=== PATIENT | male | born 1955 | race Caucasian/White ===

== ENCOUNTER 2018-02-11 22:28 | Emergency (ER) | payer MEDICARE ==
[2018-02-11] MEDS ORDERED: IPRATROPIUM/ALBUTEROL 0.5-2.5 MG/3 ML AMPUL NEB ONE ×2 (22:36→22:37)
[2018-02-11] MEDS ORDERED: METHYLPREDNISOLONE INJ 125 MG/2 ML SDV IV ONE (22:36)
--- NOTE | 2018-02-11 22:45 | ER Document Report ---
ED Respiratory Problem - General Mode of Arrival: Medic Information source: Patient <NICOLEMARISELA - Last Filed: 02/12/18 01:40> <LISBETHTRISTAN Herbert - Last Filed: 02/12/18 02:30> - General Chief Complaint: Shortness Of Breath Stated Complaint: HIP PAIN AND TORUBLE BREATHING Time Seen by Provider: 02/11/18 22:31 Notes: Patient is a 63 year old female with hypertension, osteomyelitis, A. fib, CAD with a history of bilateral DVT presents to the emergency department complaining of difficulty breathing and bilateral leg pain onset today. Patient states he recently arrived in [place], [place] from [place], [place] 2 days ago further stating the trip was a 7.5 [address] ride. Patient states he has been having bilateral leg pain the last few days but states his difficulty breathing was onset today. Patient states he missed his Xarelto does the last couple of days. Of significance, patient was diagnosed with bilateral lower extremities DVTs on 07/10/2009. He was also admitted to a hospital on 12/12/2017-12/16/2017 for hypertension, osteomyelitis, A. fib, pulmonary emphysema, CAD, hypotension and tobacco abuse. (MARISELA RIVERA) - Related Data Allergies/Adverse Reactions: No Known Allergies Allergy (Unverified 02/11/18 23:49) Past Medical History - General Information source: Patient - Social History Smoking Status: Current Every Day Smoker Cigarette use (# per day): Yes Family History: Reviewed & Not Pertinent - Past Medical History Cardiac Medical History: Reports: Hx Atrial Fibrillation, Hx Coronary Artery Disease, Hx DVT - BLE 2009, Hx Hypertension <MARISELA RIVERA - Last Filed: 02/12/18 01:40> Review of Systems - Review of Systems Constitutional: No symptoms reported EENT: No symptoms reported Cardiovascular: No symptoms reported Respiratory: See HPI Gastrointestinal: No symptoms reported Genitourinary: No symptoms reported Male Genitourinary: No symptoms reported Musculoskeletal: See HPI Skin: No symptoms reported Hematologic/Lymphatic: No symptoms reported Neurological/Psychological: No symptoms reported -: Yes All other systems reviewed and negative <MARISELA RIVERA - Last Filed: 02/12/18 01:40> Physical Exam - General General appearance: Alert In distress: Mild - HEENT Head: Normocephalic, Atraumatic Eyes: Normal Conjunctiva: Normal Extraocular movements intact: Yes Pupils: PERRL Neck: Normal - Respiratory Respiratory status: Respiratory distress, Tachypnea, Other - Dyspneic, frequent retractions Chest status: Nontender Breath sounds: Normal, Rales - Left greater than right, Wheezing - left greater than right Chest palpation: Normal - Cardiovascular Rhythm: Regular, Tachycardia Heart sounds: Normal auscultation Murmur: No Friction rub: No Gallop: None auscultated - Back Back: Normal - Extremities General upper extremity: Normal ROM General lower extremity: Normal ROM, Other - Distended varicosities BLE, right greater than left. BLE cool to touch, bilateral foot cold to touch and cyanotic. 5 second capillary refill. Pulses cannot be palpated in the BLE. Partial amputation of the fifth metatarsal, stump has yet to heal. Foot: Other - 5th metarsal partial amputation - Neurological Neuro grossly intact: Yes Cognition: Normal Orientation: AAOx4 Molly Coma Scale Eye Opening: Spontaneous [place] Coma Scale Verbal: Oriented Molly Coma Scale Motor: Obeys Commands Molly Coma Scale Total: 15 Speech: Normal - Psychological Associated symptoms: Normal affect, Normal mood - Skin Skin Temperature: Warm Skin Moisture: Dry <MARISELA RIVERA - Last Filed: 02/12/18 01:40> - Vital signs Vitals: Resp 20 02/11/18 22:30 Course - Laboratory Result Diagrams: 02/11/18 22:36 02/11/18 22:36 <MARISELA RIVERA - Last Filed: 02/12/18 01:40> - Laboratory Result Diagrams: 02/11/18 22:36 02/11/18 22:36 <TRISTAN BOB - Last Filed: 02/12/18 02:30> - Re-evaluation Re-evalutation: 02/12/18 00:47 states the patient had a stent placed in each leg. further states the right 5th metatarsal partial amputation was due to the stent collapsing. (MARISELA RIVERA) 02/12/18 02:27 Initially calls were made to [facility] to discuss the Cta with the interventional radiologist. This was based on my looking at the scan as there was a delay in getting a radiologist to read it. An attempt was made to get the patient transferred to [facility], however the patient was put on a waiting list because there were no beds. This did require multiple phone calls involving the radiology PA director of slot operations, and the hospitalist director of slot operations. Shortly after I found there were no beds available for IR, and the official reading of the CTA suggested that interventional radiology was not urgently needed, the patient began having the increased discoloration to his feet, increased pain, and the feet became quite cold to touch. At this time the surgeon [facility] was consulted, and he recommended emergent transfer to a vascular surgeon. A call was made to [facility] for vascular surgery consultation. Vascular surgeon return the call back at [phone], and immediately accepted the patient. At this time the helicopter is about to land, to transport the patient. The patient continues to have a pulse of about 125, blood pressure 165 systolic , and pulse ox of 95% on nonrebreather oxygen mask. (TRISTAN BOB) - Vital Signs Vital signs: Temp Pulse Resp BP Pulse Ox 97.8 F 128 H 23 H 165/131 H 96 02/11/18 23:27 02/11/18 23:27 02/12/18 02:01 02/12/18 02:01 02/12/18 02:01 - Laboratory Laboratory results interpreted by mo: 02/11/18 02/11/18 02/11/18 22:36 22:36 22:36 WBC 13.7 H RBC 5.89 H Hgb 17.3 H Hct 53.0 H RDW 17.9 H Lymphocytes % 9.1 L Absolute Neutrophils 10.5 H PT Carbonic Acid ABG pH ABG pCO2 ABG pO2 ABG Total CO2 ABG O2 Saturation Potassium 5.3 H Chloride 108 H Creatinine 1.53 H Est GFR ( Amer) 56 L Est GFR (Non-Af Amer) 46 L Glucose 152 H Direct Bilirubin 0.6 H Creatine Kinase 54 L NT-Pro-B Natriuret Pep 2730 H 02/11/18 02/11/18 22:36 23:00 WBC RBC Hgb Hct RDW Lymphocytes % Absolute Neutrophils PT 15.6 H Carbonic Acid 1.45 H ABG pH 7.26 L ABG pCO2 48.2 H ABG pO2 75.0 L ABG Total CO2 22.5 L ABG O2 Saturation 92.9 L Potassium Chloride Creatinine Est GFR ( Amer) Est GFR (Non-Af Amer) Glucose Direct Bilirubin Creatine Kinase NT-Pro-B Natriuret Pep Critical Care Note - Critical Care Note Total time excluding time spent on procedures (mins): 55 <TRISTAN BOB - Last Filed: 02/12/18 02:30> Discharge <MARISELA RIVERA - Last Filed: 02/12/18 01:40> <TRISTAN BOB - Last Filed: 02/12/18 02:30> - Discharge Clinical Impression: Cor pulmonale, acute Pulmonary embolus Qualifiers: Pulmonary embolism type: saddle Chronicity: acute Acute cor pulmonale presence : with acute cor pulmonale Qualified Code(s): I26.02 - Saddle embolus of pulmonary artery with acute cor pulmonale Condition: Serious Disposition: [facility] Referrals: LOCALMD,NO [NO LOCAL MD] - Follow up as needed Scribe Attestation: 02/12/18 02:27 I personally performed the services described in the documentation, reviewed and edited the documentation which was dictated to the scribe in my presence, and it accurately records my words and actions. (TRISTAN BOB) Scribe Documentation - Scribe Written by Scribe:: Keith Sy, 02/11/2018 22:54 acting as scribe for :: Lisbeth <MARISELA RIVERA - Last Filed: 02/12/18 01:40>
--- NOTE | 2018-02-11 22:47 | RADIOLOGY REPORT (SQ) ---
EXAM DESCRIPTION: XR CHEST 1 VIEW COMPLETED DATE/TME: 02/11/2018 22:30 CLINICAL HISTORY: 63 years Male, difficulty breathing COMPARISON: None. NUMBER OF VIEWS/TECHNIQUE: 1/AP FINDINGS: Adequate lung volume, moderate interstitial markings, normal cardiac silhouette, small obscuration-fusion of the right costophrenic angle, left cardiac stimulator with leads, and left costophrenic angle minimally clipped off to admission. Normal cardiac silhouette, and intact bony thorax. IMPRESSION: Moderate interstitial markings. Differential diagnosis includes pulmonary edema, atypical pneumonitis, and chronic interstitial lung disease.
[2018-02-11] MEDS ORDERED: HEPARIN SOD (PORCINE) 1,000 UNIT/ML 10 ML VIAL IV ONE (22:53)
[2018-02-11] MEDS ORDERED: HEPARIN SODIUM,PORCINE/D5W 25,000 UNIT/250 ML RTUINJ IV PRN (22:53)
[2018-02-11 22:57] LABS: ABSOLUTE BASOPHILS # (AUTO) 0.1 10^3/uL (0.0-0.2); ABSOLUTE EOSINOPHILS # (AUTO) 0.5 10^3/uL (0.0-0.6); ABSOLUTE LYMPHOCYTES (AUTO) 1.2 10^3/uL (0.5-4.7); ABSOLUTE MONOCYTES (AUTO) 1.3 10^3/uL (0.1-1.4); ABSOLUTE NEUT (AUTO) 10.5 10^3/uL (1.7-8.2); BASOPHILS % (AUTO) 0.8 % (0-2); EOSINOPHILS % (AUTO) 3.9 % (0-6); HEMOGLOBIN 17.3 g/dL (13.5-17.0); LYMPHOCYTES % (AUTO) 9.1 % (13-45); MEAN CORPUSCULAR HEMOGLOBIN 29.4 pg (27.0-33.4); MEAN CORPUSCULAR HGB CONC 32.6 g/dL (32.0-36.0); MEAN CORPUSCULAR VOLUME 90 fl (80-97); MONOCYTES % (AUTO) 9.8 % (3-13); PLATELET COUNT 294 10^3/uL (150-450); RED BLOOD COUNT 5.89 10^6/uL (4.35-5.55); RED CELL DISTRIBUTION WIDTH 17.9 % (11.5-14.0); SEGMENTED NEUTROPHILS % (AUTO) 76.4 % (42-78); TOTAL CELLS COUNTED % (AUTO) 100 %; WHITE BLOOD COUNT 13.7 10^3/uL (4.0-10.5)
[2018-02-11 23:03] LABS: INTERNATIONAL RATION (INR) 1.18; PROTHROMBIN TIME 15.6 SEC (11.4-15.4)
[2018-02-11 23:04] LABS: PARTIAL THROMBOPLASTIN TIME 32.1 SEC (23.5-35.8)
[2018-02-11] MEDS ORDERED: HEPARIN SODIUM,PORCINE/D5W 25,000 UNIT/250 ML RTUINJ IV ONE (23:06)
[2018-02-11 23:09] LABS: ARTERIAL BLOOD BASE EXCESS -6.3 mmol/L; ARTERIAL BLOOD H2CO3 1.45 mmol/L (1.05-1.35); ARTERIAL BLOOD O2 SATURATION 92.9 % (94-98); ARTERIAL BLOOD PCO2 48.2 mmHg (35-45); ARTERIAL BLOOD PH 7.26 (7.35-7.45); ARTERIAL BLOOD TOTAL CO2 22.5 mmol/L (23-27)
[2018-02-11 23:10] LABS: ARTERIAL BLOOD FIO2 100%
[2018-02-11 23:12] LABS: ALANINE AMINOTRANSFERASE 21 U/L (21-72); ALBUMIN 4.2 g/dL (3.5-5.0); ALKALINE PHOSPHATASE 71 U/L (38-126); ANION GAP 12 (5-19); ASPARTATE AMINO TRANSFERASE 35 U/L (17-59); BILIRUBIN,DIRECT 0.6 mg/dL (0.0-0.4); BILIRUBIN,TOTAL 1.3 mg/dL (0.2-1.3); BLOOD UREA NITROGEN 17 mg/dL (7-20); CALCIUM 9.2 mg/dL (8.4-10.2); CARBON DIOXIDE 24 mmol/L (22-30); CHLORIDE 108 mmol/L (98-107); CREATINE KINASE 54 U/L (55-170); GLUCOSE 152 mg/dL (75-110); POTASSIUM 5.3 mmol/L (3.6-5.0); SODIUM 144.4 mmol/L (137-145); TOTAL PROTEIN 7.3 g/dL (6.3-8.2)
--- NOTE | 2018-02-11 23:14 | RADIOLOGY REPORT (SQ) ---
PROCEDURE: CLINICAL HISTORY: 63 years Male chest pain , sob hx pe COMPARISON: None. TECHNIQUE: Contiguous axial images were obtained through the chest during the infusion of IV contrast. Reformatted images obtained. MIP reformatted images obtained. This exam was performed according to our department optimization program which includes automated exposure control, adjustment of the mA and/or kv according to patient size and/or use of iterative reconstruction technique. FINDINGS: There is a large amount of intraluminal thrombus in the left main pulmonary artery. However this apparently affects only some of the pulmonary arterial branches in the left lung. It extends to the bifurcation of the main pulmonary arterial trunk but does not involve the bifurcation itself or the right main pulmonary artery. Calcified stones in the gallbladder without pericholecystic fluid or wall thickening. The heart is enlarged. There is consolidation at the left lung base. Bone degenerative changes are present. There are mildly enlarged mediastinal lymph nodes. Nonobstructive right renal stones are close together and in total measure approximately 8 mm. There is pancreatic atrophy. Patient motion limits detail. IMPRESSION: Large intraluminal thrombus in the left main pulmonary artery involves a few of the branches supplying the left lung. We are contacting the ordering clinician now.
[2018-02-11 23:24] LABS: CREATINE KINASE MB 1.32 ng/mL (<4.55); TROPONIN I 0.019 ng/mL
[2018-02-12] MEDS ORDERED: CEFTRIAXONE 1 GM/D5W RTU 1 GM/50 ML RTUPB IV ONE (00:05)
[2018-02-12] MEDS ORDERED: FENTANYL CITRATE INJ/PF 100 MCG/2 ML AMPUL IV ONE (00:05)
[2018-02-12] MEDS ORDERED: HEPARIN SOD (PORCINE) 1,000 UNIT/ML 10 ML VIAL IV PRN (01:53)
[2018-02-12 02:46] VITALS: BP 164/125
--- NOTE | 2018-02-12 09:32 | EKG REPORT ---
SEVERITY:- ABNORMAL ECG - SINUS TACHYCARDIA RIGHT BUNDLE BRANCH BLOCK : Confirmed by: Jose Luis Burt 12-Feb-2018 09:31:39
== END 2018-02-12 02:57 | disposition short-term general hospital (02) ==
LOC: ER 22:28
DX: I26.02 Saddle embolus of pulmonary artery with acute cor pulmonale (principal); I83.813 Varicose veins of bilateral lower extremities with pain; I10 Essential (primary) hypertension; I25.10 Atherosclerotic heart disease of native coronary artery without angina pectoris; R06.2 Wheezing; F17.210 Nicotine dependence, cigarettes, uncomplicated; Z86.718 Personal history of other venous thrombosis and embolism; Z89.431 Acquired absence of right foot; Z95.820 Peripheral vascular angioplasty status with implants and grafts
CPT/HCPCS: 93005; 36600; 94640; 99291; 96375; 96365; 36415; 82553; 82803; 82550; 85025; 85610; 85730; 80053; 84484; 83880; 71045; 71275; 93010; J3010; J1644; J2930; J0696; A9270; J7620

== ENCOUNTER 2018-03-03 19:16 | Inpatient (IN) | payer MEDICARE ==
--- NOTE | 2018-03-03 19:35 | ER Document Report ---
ED General - General Mode of Arrival: Ambulatory Information source: Patient TRAVEL OUTSIDE OF THE [place] IN LAST 30 DAYS: No <MARISELA RIVERA - Last Filed: 03/03/18 19:54> <TRISTAN BOB - Last Filed: 03/03/18 21:42> - General Stated Complaint: POSSIBLE BLOOD PRESSURE ISSUE Time Seen by Provider: 03/03/18 19:23 Notes: Patient is a 63 year old male with a pacemaker and a history of DVTs was sent to the emergency department from [facility] (for rehab) complaining of dizziness and low blood pressure. Patient was seen in the emergency department on 02/11/2018 for shortness of breath and bilateral leg pain after travelling from [place] shortly before. Patient states he stopped taking Xarelto just before his travel to [place]. While here the patient's lower extremites became cyanotic, cool to touch and painful. Patient was found to have a large pulmonary embolus in the left pulmonary artery. Patient was sent to [place] where vascular intervention took place. Patient was then sent to [facility] for rehab 2 days ago where he began to have dizziness when standing up. Patient states his blood pressure was taken due to his symptoms continuing and he was found to have a low blood pressure and sent to this emergency department. At bedside patient states he feels fine. Of significance, patient was diagnosed with bilateral lower extremities DVTs on 07/10/2009. He was also admitted to a hospital on 12/12/2017-12/16/2017 for hypertension, osteomyelitis, A. fib, pulmonary emphysema, CAD, hypotension and tobacco abuse. (MARISELA RIVERA) - Related Data Allergies/Adverse Reactions: No Known Allergies Allergy (Unverified 02/11/18 23:49) Past Medical History - General Information source: Patient, Relative - Social History Smoking Status: Current Every Day Smoker Cigarette use (# per day): Yes Family History: Reviewed & Not Pertinent - Past Medical History Cardiac Medical History: Reports: Hx Atrial Fibrillation, Hx Coronary Artery Disease, Hx DVT - BLE 2009, Hx Hypertension <MARISELA RIVERA - Last Filed: 03/03/18 19:54> Review of Systems - Review of Systems Constitutional: No symptoms reported EENT: No symptoms reported Cardiovascular: See HPI, Dizziness Respiratory: No symptoms reported Gastrointestinal: No symptoms reported Genitourinary: No symptoms reported Male Genitourinary: No symptoms reported Musculoskeletal: No symptoms reported Skin: No symptoms reported Hematologic/Lymphatic: No symptoms reported Neurological/Psychological: No symptoms reported -: Yes All other systems reviewed and negative <MARISELA RIVERA - Last Filed: 03/03/18 19:54> Physical Exam <MARISELA RIVERA - Last Filed: 03/03/18 19:54> <TRISTAN BOB - Last Filed: 03/03/18 21:42> - Vital signs Vitals: Temp Pulse Resp BP Pulse Ox 97.7 F 73 18 68/47 L 94 03/03/18 19:17 03/03/18 19:17 03/03/18 19:17 03/03/18 19:17 03/03/18 19:17 - Notes Notes: GENERAL: Alert, interacts well. No acute distress. HEAD: Normocephalic, atraumatic. EYES: Pupils equal, round, and reactive to light. Extraocular movements intact. ENT: Oral mucosa moist, tongue midline. NECK: Full range of motion. Supple. Trachea midline. LUNGS: Coarse breath sounds bilaterally. No respiratory distress. HEART: Regular rate and rhythm. No murmurs, gallops, or rubs. ABDOMEN: Soft, non-tender. Non-distended. Bowel sounds present in all 4 quadrants. EXTREMITIES: Moves all 4 extremities spontaneously. BLE are warm with good capillary refill. Bandages are place on BLE, consistent with history. NEUROLOGICAL: Alert and oriented x3. Normal speech. PSYCH: Normal affect, normal mood. SKIN: Warm, dry, normal turgor. (MARISELA RIVERA) Course - Laboratory Result Diagrams: 03/03/18 19:30 03/03/18 19:30 <MARISELA RIVERA - Last Filed: 03/03/18 19:54> - Laboratory Result Diagrams: 03/03/18 20:10 03/03/18 19:30 - Diagnostic Test Radiology reviewed: Image reviewed, Reports reviewed - Chest x-ray shows chronic lung changes with possibly minimal right pleural effusion - EKG Interpretation by Pa EKG shows normal: [place], Intervals, QRS Complexes, ST-T Waves Rate: Normal - 75 Rhythm: Other - Atrialsensed ventricularpaced rhythm - Consults Dr. Arriaga Time consulted: 20:55 Consulted provider: will come to ER <TRISTAN BOB - Last Filed: 03/03/18 21:42> - Vital Signs Vital signs: Temp Pulse Resp BP Pulse Ox 97.7 F 73 23 H 81/70 L 94 03/03/18 19:17 03/03/18 19:17 03/03/18 21:30 03/03/18 21:30 03/03/18 21:30 - Laboratory Laboratory results interpreted by me: 03/03/18 03/03/18 03/03/18 19:30 19:30 19:30 WBC Hgb RDW Plt Count Seg Neutrophils % Lymphocytes % Absolute Neutrophils Absolute Monocytes PT 19.7 H APTT 40.4 H Sodium 134.9 L Chloride 94 L BUN 72 H Creatinine 2.68 H Est GFR ( Amer) 29 L Est GFR (Non-Af Amer) 24 L Direct Bilirubin 0.6 H Creatine Kinase 34 L NT-Pro-B Natriuret Pep 2830 H Total Protein 5.8 L Albumin 3.1 L 03/03/18 20:10 WBC 16.0 H Hgb 13.0 L RDW 18.9 H Plt Count 663 H Seg Neutrophils % 81.0 H Lymphocytes % 6.8 L Absolute Neutrophils 13.0 H Absolute Monocytes 1.6 H PT APTT Sodium Chloride BUN Creatinine Est GFR ( Amer) Est GFR (Non-Af Amer) Direct Bilirubin Creatine Kinase NT-Pro-B Natriuret Pep Total Protein Albumin Critical Care Note - Critical Care Note Total time excluding time spent on procedures (mins): 45 <TRISTAN BOB - Last Filed: 03/03/18 21:42> Discharge <MARISELA RIVERA - Last Filed: 03/03/18 19:54> - Discharge Admitting Provider: Hospitalist Unit Admitted: IMCU <TRISTAN BOB - Last Filed: 03/03/18 21:42> - Discharge Clinical Impression: Dehydration Hypotension Qualifiers: Hypotension type: unspecified hypotension type Qualified Code(s): I95.9 - Hypotension, unspecified Acute renal failure Qualifiers: Acute renal failure type: unspecified Qualified Code(s): N17.9 - Acute kidney failure, unspecified Condition: Fair Disposition: ADMITTED INPATIENT Scribe Attestation: 03/03/18 21:00 I personally performed the services described in the documentation, reviewed and edited the documentation which was dictated to the scribe in my presence, and it accurately records my words and actions. (TRISTAN BOB) Scribe Documentation - Scribe Written by Keith:: Keith Sy, 03/03/2018 19:53 acting as scribe for :: Rigoberto <MARISELA RIVERA - Last Filed: 03/03/18 19:54>
[2018-03-03] MEDS ORDERED: RIVAROXABAN 10 MG TABLET PO ONE (19:37)
[2018-03-03] MEDS ORDERED: NORMAL SALINE 1000 ML 200 ML IV ONE (19:38)
[2018-03-03] MEDS ORDERED: IPRATROPIUM/ALBUTEROL 0.5-2.5 MG/3 ML AMPUL NEB ONE (19:51)
[2018-03-03 19:53] LABS: INTERNATIONAL RATION (INR) 1.59; PROTHROMBIN TIME 19.7 SEC (11.4-15.4)
[2018-03-03 19:54] LABS: PARTIAL THROMBOPLASTIN TIME 40.4 SEC (23.5-35.8)
--- NOTE | 2018-03-03 20:02 | RADIOLOGY REPORT (SQ) ---
EXAM DESCRIPTION: CHEST SINGLE VIEW COMPLETED DATE/TIME: 03/03/2018 7:49 pm REASON FOR STUDY: Hypotension COMPARISON: 02/11/2018 EXAM PARAMETERS: NUMBER OF VIEWS: One view. TECHNIQUE: Single frontal radiographic view of the chest acquired. RADIATION DOSE: NA LIMITATIONS: None. FINDINGS: LUNGS AND PLEURA: Hyperexpansion of the lungs. Cannot exclude limited right pleural effus ion. MEDIASTINUM AND HILAR STRUCTURES: No masses. Contour normal. HEART AND VASCULAR STRUCTURES: Heart normal in size. Normal vasculature. BONES: No acute findings. HARDWARE: Pacemaker/defibrillator. OTHER: No other significant finding. IMPRESSION: Chronic lung changes. There may be a minimal right pleural effusion. TECHNICAL DOCUMENTATION: JOB ID: [id number] [employer]- All Rights Reserved Reading location - IP/workstation name: [email or web address]
[2018-03-03 20:05] LABS: ALANINE AMINOTRANSFERASE 22 U/L (21-72); ALBUMIN 3.1 g/dL (3.5-5.0); ALKALINE PHOSPHATASE 73 U/L (38-126); ANION GAP 15 (5-19); ASPARTATE AMINO TRANSFERASE 23 U/L (17-59); BILIRUBIN,DIRECT 0.6 mg/dL (0.0-0.4); BILIRUBIN,TOTAL 0.6 mg/dL (0.2-1.3); BLOOD UREA NITROGEN 72 mg/dL (7-20); CALCIUM 8.8 mg/dL (8.4-10.2); CARBON DIOXIDE 26 mmol/L (22-30); CHLORIDE 94 mmol/L (98-107); CREATINE KINASE 34 U/L (55-170); GLUCOSE 86 mg/dL (75-110); POTASSIUM 4.9 mmol/L (3.6-5.0); SODIUM 134.9 mmol/L (137-145); TOTAL PROTEIN 5.8 g/dL (6.3-8.2)
[2018-03-03 20:18] LABS: TROPONIN I 0.013 ng/mL
[2018-03-03 20:25] LABS: ABSOLUTE LYMPHOCYTES (AUTO) 1.1 10^3/uL (0.5-4.7); ABSOLUTE MONOCYTES (AUTO) 1.6 10^3/uL (0.1-1.4); TOTAL CELLS COUNTED % (AUTO) 100 %
[2018-03-03 20:34] LABS: ABSOLUTE BASOPHILS # (AUTO) 0.1 10^3/uL (0.0-0.2); ABSOLUTE EOSINOPHILS # (AUTO) 0.3 10^3/uL (0.0-0.6); BASOPHILS % (AUTO) 0.7 % (0-2); EOSINOPHILS % (AUTO) 1.7 % (0-6); HEMATOCRIT 39.2 % (37.9-51.0); LYMPHOCYTES % (AUTO) 6.8 % (13-45); MEAN CORPUSCULAR HEMOGLOBIN 28.4 pg (27.0-33.4); MEAN CORPUSCULAR HGB CONC 33.1 g/dL (32.0-36.0); MONOCYTES % (AUTO) 9.8 % (3-13); PLATELET COUNT 663 10^3/uL (150-450); RED BLOOD COUNT 4.56 10^6/uL (4.35-5.55); RED CELL DISTRIBUTION WIDTH 18.9 % (11.5-14.0)
[2018-03-03 20:36] LABS: MEAN CORPUSCULAR VOLUME 86 fl (80-97)
--- NOTE | 2018-03-03 20:43 | EKG REPORT ---
SEVERITY:- ABNORMAL ECG - ATRIAL-SENSED VENTRICULAR-PACED RHYTHM : Confirmed by: Fani Mata MD 03-Mar-2018 20:41:45
[2018-03-03] MEDS ORDERED: NORMAL SALINE 1000 ML 1,000 ML IV ONE (21:01)
[2018-03-03] MEDS ORDERED: ACETAMINOPHEN 325 MG TABLET PO PRN (21:31)
[2018-03-03] MEDS ORDERED: MAG HYDROX/AL HYDROX/SIMETH SUSP 30 ML UDCUP PO PRN (21:31)
[2018-03-03] MEDS ORDERED: IPRATROPIUM/ALBUTEROL 0.5-2.5 MG/3 ML AMPUL NEB PRN (21:31)
[2018-03-03 22:17] LABS: PHOSPHORUS 5.3 mg/dL (2.5-4.5)
[2018-03-03] MEDS: NORMAL SALINE 1000 ML 1,000 ML IV SCH (22:23)
[2018-03-04] MEDS: IPRATROPIUM/ALBUTEROL 0.5-2.5 MG/3 ML AMPUL NEB SCH ×4 (00:18→20:09)
[2018-03-04] MEDS: NORMAL SALINE 1000 ML 1,000 ML IV SCH (00:46)
[2018-03-04 02:08] LABS: CREATINE KINASE MB 0.71 ng/mL (<4.55)
[2018-03-04 02:11] LABS: TROPONIN I < 0.012 ng/mL
[2018-03-04] MEDS ORDERED: NORMAL SALINE 1000 ML 1,000 ML IV SCH (02:30)
--- NOTE | 2018-03-04 04:55 | PDOC H&P ---
History of Present Illness Admission Date/PCP: 03/03/18 21:31 Patient complains of: Hypotension History of Present Illness: JACKSON BLUNT JR is a 63 year old male with a past medical history of oxygen dependent COPD with ongoing tobacco dependence, recent bilateral lower extremity DVT with pulmonary emboli on Xarelto, atrial fibrillation, coronary artery disease status post stenting and permanent pacemaker. Patient was recovering at retirement facility when was discovered hypotensive. In the emergency room is found to have a blood pressure of 54/40 and acute renal failure. He remained awake and alert, denying pain, received 2 L of normal saline and referred to the hospitalist for admission. He denies headache, chest pain, palpitations or shortness of breath from baseline, admitting a little dizziness when he sits up. Patient is unaware of new medications and otherwise feels well. Past Medical History Cardiac Medical History: Reports: Atrial Fibrillation, Coronary Artery Disease, DVT - BLE 2009, Hypertension Pulmonary Medical History: Reports: Chronic Obstructive Pulmonary Disease (COPD) Psychiatric Medical History: Reports: Depression, Tobacco Dependency Past Surgical History Past Surgical History: Reports: Pacemaker, Vascular Surgery - Bilateral lower extremity DVT retrieval Social History Information Source: Patient, [facility] Records Lives with: Retirement Smoking Status: Current Every Day Smoker Frequency of Alcohol Use: None Hx Recreational Drug Use: No Drugs: None Hx Prescription Drug Abuse: No - Advance Directive Resuscitation Status: Full Code Family History Family History: COPD, Hypertension Parental Family History Reviewed: Yes Children Family History Reviewed: Yes Sibling(s) Family History Reviewed.: Yes Medication/Allergy Allergies/Adverse Reactions: No Known Allergies Allergy (Unverified 02/11/18 23:49) Review of Systems Constitutional: ABSENT: chills, fever(s), headache(s), weight gain, weight loss Eyes: ABSENT: visual disturbances Ears: ABSENT: hearing changes Cardiovascular: ABSENT: chest pain, dyspnea on exertion, edema, orthropnea, palpitations Respiratory: ABSENT: cough, hemoptysis Gastrointestinal: ABSENT: abdominal pain, constipation, diarrhea, hematemesis, hematochezia, nausea, vomiting Genitourinary: ABSENT: dysuria, hematuria Musculoskeletal: ABSENT: joint swelling Integumentary: ABSENT: rash, wounds Neurological: ABSENT: abnormal gait, abnormal speech, confusion, dizziness, focal weakness, syncope Psychiatric: ABSENT: anxiety, depression, homidical ideation, suicidal ideation Endocrine: ABSENT: cold intolerance, heat intolerance, polydipsia, polyuria Hematologic/Lymphatic: ABSENT: easy bleeding, easy bruising Physical Exam Vital Signs: Temp Pulse Resp BP Pulse Ox 98.9 F 73 20 97/55 L 94 03/04/18 03:31 03/04/18 03:31 03/04/18 03:31 03/04/18 03:31 03/04/18 03:31 General appearance: PRESENT: no acute distress, thin - Appears much, much older than stated age, other - Temporal wasting and cachexia Head exam: PRESENT: atraumatic, normocephalic Eye exam: PRESENT: conjunctiva pink, EOMI, PERRLA. ABSENT: scleral icterus Ear exam: PRESENT: normal external ear exam Mouth exam: PRESENT: moist, tongue midline Neck exam: ABSENT: carotid bruit, JVD, lymphadenopathy, thyromegaly Respiratory exam: PRESENT: clear to auscultation sandra, decreased breath sounds, prolonged expiratory phas, symmetrical, tachypnea. ABSENT: rales, rhonchi, wheezes Cardiovascular exam: PRESENT: irregular rhythm. ABSENT: diastolic murmur, rubs , systolic murmur Pulses: PRESENT: normal dorsalis pedis pul Vascular exam: PRESENT: other. ABSENT: normal capillary refill, pallor GI/Abdominal exam: PRESENT: normal bowel sounds, soft. ABSENT: distended, guarding, mass, organolmegaly, rebound, tenderness Rectal exam: PRESENT: deferred Extremities exam: PRESENT: full ROM, other - Global muscular atrophy. ABSENT: calf tenderness, clubbing, pedal edema Musculoskeletal exam: PRESENT: ambulatory Neurological exam: PRESENT: alert, awake, oriented to person, oriented to place , oriented to time, oriented to situation, CN II-XII grossly intact. ABSENT: motor sensory deficit Psychiatric exam: PRESENT: appropriate affect, normal mood. ABSENT: homicidal ideation, suicidal ideation Skin exam: PRESENT: dry, intact, warm. ABSENT: cyanosis, rash Results Laboratory Results: 03/03/18 23:42 Lactic Acid 1.0 03/04/18 03/04/18 01:28 01:28 Creatine Kinase < 20 L CK-MB (CK-2) 0.71 Troponin I < 0.012 Impressions: Chest X-Ray 03/03/18 19:35 IMPRESSION: Chronic lung changes. There may be a minimal right pleural effusion. Assessment & Plan - Diagnosis (1) A-fib Qualifiers: Atrial fibrillation type: chronic Qualified Code(s): I48.2 - Chronic atrial fibrillation Is this a current diagnosis for this admission?: Yes Plan: Currently paced with rate control, formally on amiodarone discontinued secondary to pulmonary function, medical record pending, med reconciliation pending, continue Xarelto (2) COPD (chronic obstructive pulmonary disease) Is this a current diagnosis for this admission?: Yes Plan: End-stage is at baseline very poor air movement, albuterol, Atrovent, incentive spirometry and flutter valve. (3) Acute renal failure Qualifiers: Acute renal failure type: unspecified Qualified Code(s): N17.9 - Acute kidney failure, unspecified Is this a current diagnosis for this admission?: Yes Plan: Likely iatrogenic, diuretics and antihypertensives held, patient is received a 4 L challenge resulting in a systolic blood pressure of 80/54, follow-up chemistry and urinalysis, consider nephrology consult (4) Hypotension Qualifiers: Hypotension type: unspecified hypotension type Qualified Code(s): I95.9 - Hypotension, unspecified Is this a current diagnosis for this admission?: Yes Plan: Please see #2, continue IV fluid challenge as tolerated. - Time Time Spent: 50 to 70 Minutes - Inpatient Certification Medical Necessity: Need Close Monitoring Due to Risk of Patient Decompensation
[2018-03-04] MEDS ORDERED: DILTIAZEM HCL 30 MG TABLET PO SCH ×2 (06:00→12:00)
[2018-03-04 07:47] LABS: ABSOLUTE BASOPHILS # (AUTO) 0.1 10^3/uL (0.0-0.2); ABSOLUTE EOSINOPHILS # (AUTO) 0.2 10^3/uL (0.0-0.6); ABSOLUTE LYMPHOCYTES (AUTO) 0.6 10^3/uL (0.5-4.7); ABSOLUTE NEUT (AUTO) 8.3 10^3/uL (1.7-8.2); BASOPHILS % (AUTO) 0.8 % (0-2); EOSINOPHILS % (AUTO) 1.9 % (0-6); HEMATOCRIT 34.8 % (37.9-51.0); HEMOGLOBIN 11.6 g/dL (13.5-17.0); LYMPHOCYTES % (AUTO) 6.3 % (13-45); MEAN CORPUSCULAR HEMOGLOBIN 28.6 pg (27.0-33.4); MEAN CORPUSCULAR HGB CONC 33.2 g/dL (32.0-36.0); MEAN CORPUSCULAR VOLUME 86 fl (80-97); MONOCYTES % (AUTO) 9.6 % (3-13); PLATELET COUNT 537 10^3/uL (150-450); RED BLOOD COUNT 4.04 10^6/uL (4.35-5.55); SEGMENTED NEUTROPHILS % (AUTO) 81.4 % (42-78); TOTAL CELLS COUNTED % (AUTO) 100 %; WHITE BLOOD COUNT 10.2 10^3/uL (4.0-10.5)
[2018-03-04 08:01] LABS: ALANINE AMINOTRANSFERASE 32 U/L (21-72); ALBUMIN 2.3 g/dL (3.5-5.0); ALKALINE PHOSPHATASE 104 U/L (38-126); ANION GAP 8 (5-19); ASPARTATE AMINO TRANSFERASE 33 U/L (17-59); BILIRUBIN,DIRECT 0.5 mg/dL (0.0-0.4); BILIRUBIN,TOTAL 0.5 mg/dL (0.2-1.3); CARBON DIOXIDE 22 mmol/L (22-30); CHLORIDE 109 mmol/L (98-107); GLUCOSE 85 mg/dL (75-110); POTASSIUM 4.7 mmol/L (3.6-5.0); SODIUM 139.4 mmol/L (137-145); TOTAL PROTEIN 4.6 g/dL (6.3-8.2)
[2018-03-04 08:11] LABS: CREATINE KINASE MB 3.12 ng/mL (<4.55)
[2018-03-04 08:16] LABS: TROPONIN I < 0.012 ng/mL
[2018-03-04] MEDS ORDERED: OXYCODONE-ACETAMINOPHEN 5-325 MG TABLET PO ONE (08:52)
[2018-03-04 08:56] LABS: BLOOD UREA NITROGEN 47 mg/dL (7-20)
[2018-03-04] MEDS ORDERED: IPRATROPIUM/ALBUTEROL 0.5-2.5 MG/3 ML AMPUL NEB PRN (09:55)
[2018-03-04] MEDS ORDERED: DOCUSATE SODIUM 100 MG CAPSULE PO SCH (10:00)
[2018-03-04] MEDS: MAGNESIUM OXIDE 400 MG TABLET PO SCH ×2 (11:28→18:01)
[2018-03-04] MEDS ORDERED: COSYNTROPIN INJ 0.25 MG VIAL IV ONE (11:30)
[2018-03-04] MEDS ORDERED: NORMAL SALINE 1000 ML 1,000 ML IV PRN (14:46)
[2018-03-04] MEDS: OXYCODONE HCL IR 5 MG TABLET PO PRN ×3 (15:39→23:49)
--- NOTE | 2018-03-04 16:22 | PDOC PROGRESS REPORT ---
Subjective Progress Note for:: 03/04/18 Subjective:: The patient is a 63-year-old gentleman with past medical history of Coronary artery disease Hypertension Atrial fibrillation On chronic anticoagulation with Xarelto Pulmonary embolism Osteomyelitis-status post partial amputation of bilateral fifth toes. 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 The patient was emergently taken to the OR and was found to have thrombotic occlusion of the iliac distal aorta, bilateral superficial femoral arteries, popliteal arteries and tibial vessels with critical limb ischemia and compartment syndrome of the right lower extremity. He underwent bifemoral expiration aortoiliac thrombectomy bilaterally with femoral incision, and distal lower extremity embolectomy. According to documentation from [facility], he underwent 4 compartment fasciotomy of the right lower extremity and wound VAC placement of fasciotomy to the left lower extremity. Echocardiogram showed a left ventricular ejection fraction of 20-25%. On February 27 was discharged to a residential facility for rehab. He was admitted on March 02 with hypotension. Initial blood pressures noted to be in the 50s systolic. He was found to have acute renal failure with a BUN of 72 and creatinine of 2.6. The patient received IV fluid resuscitation. Systolic blood pressures are now in the 90s. Outpatient medications are being adjusted. Home medications: Plavix 75 mg daily Protonix 40 mg daily Lisinopril 20 mg daily Lasix 40 mg twice a day Coreg 25 mg twice a day Symbicort twice a day Pravachol 80 mg at bedtime Xarelto 20 mg daily in the evening Spironolactone 25 mg daily Spiriva 18 mcg inhaled daily Percocet 5/325 every 4 hours as needed Of note, the patient's tells me that he is not supposed to be on amiodarone or aspirin. These were however listed on the residential facility medication list. The patient reports watery diarrhea for the past 2 days. His is at the bedside and plan of care was discussed in detail. Reason For Visit: HYPOTENSION PRERENAL AZO, ARF Physical Exam Vital Signs: Temp Pulse Resp BP Pulse Ox 98.1 F 74 16 85/47 L 99 03/04/18 07:45 03/04/18 08:11 03/04/18 08:11 03/04/18 07:45 03/04/18 07:45 Intake & Output 03/03/18 03/04/18 03/05/18 06:59 06:59 06:59 Intake Total 750 Output Total 475 Balance 275 Weight 78.4 kg General appearance: PRESENT: no acute distress, thin Head exam: PRESENT: normocephalic Eye exam: ABSENT: scleral icterus Ear exam: PRESENT: normal external ear exam Mouth exam: PRESENT: moist Neck exam: ABSENT: tracheal deviation Respiratory exam: PRESENT: symmetrical, unlabored. ABSENT: wheezes Cardiovascular exam: PRESENT: RRR GI/Abdominal exam: PRESENT: normal bowel sounds, soft. ABSENT: tenderness Rectal exam: PRESENT: deferred Neurological exam: PRESENT: alert, awake, oriented to person, oriented to place , oriented to time, oriented to situation Psychiatric exam: PRESENT: appropriate affect Results Laboratory Results: 03/04/18 07:22 03/04/18 07:22 03/03/18 03/04/18 03/04/18 23:42 07:22 07:22 WBC 10.2 RBC 4.04 L Hgb 11.6 L Hct 34.8 L MCV 86 MCH 28.6 MCHC 33.2 RDW 19.0 H Plt Count 537 H Seg Neutrophils % 81.4 H Lymphocytes % 6.3 L Monocytes % 9.6 Eosinophils % 1.9 Basophils % 0.8 Absolute Neutrophils 8.3 H Absolute Lymphocytes 0.6 Absolute Monocytes 1.0 Absolute Eosinophils 0.2 Absolute Basophils 0.1 Sodium 139.4 Potassium 4.7 Chloride 109 H Carbon Dioxide 22 Anion Gap 8 BUN 47 H D Creatinine 1.55 H Est GFR ( Amer) 55 L Est GFR (Non-Af Amer) 45 L Glucose 85 Lactic Acid 1.0 Calcium 8.0 L Total Bilirubin 0.5 AST 33 ALT 32 Alkaline Phosphatase 104 Total Protein 4.6 L Albumin 2.3 L 03/04/18 03/04/18 03/04/18 01:28 01:28 07:22 Creatine Kinase < 20 L 27 L CK-MB (CK-2) 0.71 Troponin I < 0.012 03/04/18 07:22 Creatine Kinase CK-MB (CK-2) 3.12 Troponin I < 0.012 Impressions: Chest X-Ray 03/03/18 19:35 IMPRESSION: Chronic lung changes. There may be a minimal right pleural effusion. Assessment & Plan - Diagnosis (1) Acute renal failure Qualifiers: Acute renal failure type: unspecified Qualified Code(s): N17.9 - Acute kidney failure, unspecified Is this a current diagnosis for this admission?: Yes Plan: Improving with IV fluids. Continue to monitor renal function and urine output. Avoid nephrotoxic agents. (2) A-fib Qualifiers: Atrial fibrillation type: chronic Qualified Code(s): I48.2 - Chronic atrial fibrillation Is this a current diagnosis for this admission?: Yes Plan: A sensed, V paced rhythm. Coreg dose reduced to 3.125 mg twice a day with hold parameters. Continue Xarelto and Plavix.. (3) COPD (chronic obstructive pulmonary disease) Is this a current diagnosis for this admission?: Yes Plan: Not in exacerbation. Continue outpatient inhalers. (4) Dehydration Is this a current diagnosis for this admission?: Yes Plan: Hold diuretics and LORENE inhibitors. IV fluids, monitor renal function. (5) Hypotension Qualifiers: Hypotension type: unspecified hypotension type Qualified Code(s): I95.9 - Hypotension, unspecified Is this a current diagnosis for this admission?: Yes Plan: Due to multiple medications. No evidence of sepsis. Check a.m. cortisol. Patient denies being on steroids on the recent past. (6) Coronary artery disease Is this a current diagnosis for this admission?: Yes Plan: Plavix, [id number] dose with hold parameters. LORENE inhibitor on hold due to renal function. (7) Cardiomyopathy Qualifiers: Cardiomyopathy type: ischemic Qualified Code(s): I25.5 - Ischemic cardiomyopathy Is this a current diagnosis for this admission?: Yes Plan: No evidence of acute exacerbation of CHF. Watch closely for signs and symptoms of fluid overload. (8) Diarrhea Qualifiers: Diarrhea type: unspecified type Qualified Code(s): R19.7 - Diarrhea, unspecified Is this a current diagnosis for this admission?: Yes Plan: Has been on a prolonged course of IV antibiotics for right foot osteomyelitis. Check stool for C. difficile. (9) Peripheral vascular disease Is this a current diagnosis for this admission?: Yes Plan: Status post recent vascular surgery. Continue Xarelto and Plavix. Good bilateral dorsalis pedis pulses. (10) History of pulmonary embolism Is this a current diagnosis for this admission?: Yes Plan: Continue Xarelto (11) History of DVT (deep vein thrombosis) Is this a current diagnosis for this admission?: Yes Plan: Continue Xarelto - Time Time Spent with patient: 35 or more minutes
[2018-03-04] MEDS: RIVAROXABAN 10 MG TABLET PO SCH (18:01)
[2018-03-04] MEDS: BUDESONIDE/FORMOTEROL 160-4.5 MCG 60 PUFF/6 GM MDI IH SCH (18:02)
[2018-03-04] MEDS: ATORVASTATIN CALCIUM 20 MG TABLET PO SCH (19:33)
[2018-03-04] MEDS: CARVEDILOL 3.125 MG TABLET PO SCH (21:34)
[2018-03-04] MEDS ORDERED: CARVEDILOL 3.125 MG PO SCH (22:00)
[2018-03-05] MEDS: OXYCODONE HCL IR 5 MG TABLET PO PRN ×5 (04:01→21:12)
[2018-03-05 05:05] LABS: HEMATOCRIT 34.2 % (37.9-51.0); HEMOGLOBIN 11.4 g/dL (13.5-17.0); MEAN CORPUSCULAR HEMOGLOBIN 28.8 pg (27.0-33.4); MEAN CORPUSCULAR HGB CONC 33.3 g/dL (32.0-36.0); MEAN CORPUSCULAR VOLUME 87 fl (80-97); PLATELET COUNT 456 10^3/uL (150-450); RED BLOOD COUNT 3.95 10^6/uL (4.35-5.55); RED CELL DISTRIBUTION WIDTH 18.4 % (11.5-14.0); WHITE BLOOD COUNT 10.1 10^3/uL (4.0-10.5)
[2018-03-05] MEDS: LANSOPRAZOLE 30 MG TAB.RAP.DR PO SCH (05:06)
[2018-03-05 05:33] LABS: ANION GAP 6 (5-19); CALCIUM 7.9 mg/dL (8.4-10.2); CARBON DIOXIDE 24 mmol/L (22-30); CHLORIDE 110 mmol/L (98-107); GLUCOSE 98 mg/dL (75-110); PHOSPHORUS 2.3 mg/dL (2.5-4.5); POTASSIUM 4.2 mmol/L (3.6-5.0); SODIUM 140.4 mmol/L (137-145)
[2018-03-05 05:48] LABS: BLOOD UREA NITROGEN 24 mg/dL (7-20)
[2018-03-05] MEDS ORDERED: COSYNTROPIN INJ 0.25 MG VIAL IV ONE (08:00)
[2018-03-05] MEDS: IPRATROPIUM/ALBUTEROL 0.5-2.5 MG/3 ML AMPUL NEB SCH ×3 (08:04→19:52)
[2018-03-05] MEDS: CLOPIDOGREL BISULFATE 75 MG TABLET PO SCH (08:35)
[2018-03-05] MEDS: TIOTROPIUM BROMIDE DPI 5 CAP/KIT (18 MCG/CAP) IH SCH (08:36)
[2018-03-05] MEDS: LACTOBACILLUS ACIDOPHILUS 250 MG TAB PO SCH ×2 (11:02→16:57)
[2018-03-05] MEDS: MAGNESIUM OXIDE 400 MG TABLET PO SCH ×2 (11:04→16:58)
[2018-03-05] MEDS: CARVEDILOL 3.125 MG TABLET PO SCH ×2 (11:04→22:36)
[2018-03-05] MEDS: BUDESONIDE/FORMOTEROL 160-4.5 MCG 60 PUFF/6 GM MDI IH SCH ×2 (11:26→16:56)
[2018-03-05] MEDS: ALPRAZOLAM 0.25 MG TABLET PO PRN ×2 (12:41→17:03)
--- NOTE | 2018-03-05 16:34 | PDOC PROGRESS REPORT ---
Subjective Progress Note for:: 03/05/18 Subjective:: Feels better today, requesting Xanax for anxiet. Renal function and BP improving. Reason For Visit: HYPOTENSION PRERENAL AZO, ARF Physical Exam Vital Signs: Temp Pulse Resp BP Pulse Ox 98.4 F 83 17 122/79 88 L 03/05/18 12:03 03/05/18 12:06 03/05/18 08:00 03/05/18 12:06 03/05/18 12:06 Intake & Output 03/04/18 03/05/18 03/06/18 06:59 06:59 06:59 Intake Total 750 4656 576 Output Total 475 1050 450 Balance 275 3606 126 Weight 78.4 kg 81.7 kg General appearance: PRESENT: no acute distress, disheveled, thin Head exam: PRESENT: normocephalic Eye exam: ABSENT: scleral icterus Ear exam: PRESENT: normal external ear exam Mouth exam: PRESENT: moist Respiratory exam: PRESENT: symmetrical, unlabored. ABSENT: crackles, wheezes Cardiovascular exam: PRESENT: RRR GI/Abdominal exam: PRESENT: normal bowel sounds, soft. ABSENT: tenderness Rectal exam: PRESENT: deferred Extremities exam: ABSENT: pedal edema Neurological exam: PRESENT: alert, awake, oriented to person, oriented to place , oriented to time Results Laboratory Results: 03/05/18 04:30 03/05/18 04:30 03/05/18 03/05/18 03/05/18 04:30 04:30 04:30 WBC 10.1 RBC 3.95 L Hgb 11.4 L Hct 34.2 L MCV 87 MCH 28.8 MCHC 33.3 RDW 18.4 H Plt Count 456 H Sodium 140.4 Potassium 4.2 Chloride 110 H Carbon Dioxide 24 Anion Gap 6 BUN 24 H D Creatinine 0.97 Est GFR ( Amer) > 60 Est GFR (Non-Af Amer) > 60 Glucose 98 Calcium 7.9 L Phosphorus 2.3 L Magnesium 2.0 TSH 1.47 03/04/18 03/04/18 03/04/18 01:28 01:28 07:22 Creatine Kinase < 20 L 27 L CK-MB (CK-2) 0.71 Troponin I < 0.012 NT-Pro-B Natriuret Pep 03/04/18 03/05/18 07:22 04:30 Creatine Kinase CK-MB (CK-2) 3.12 Troponin I < 0.012 NT-Pro-B Natriuret Pep 3380 H Impressions: Chest X-Ray 03/03/18 19:35 IMPRESSION: Chronic lung changes. There may be a minimal right pleural effusion. Assessment & Plan - Diagnosis (1) Acute renal failure Qualifiers: Acute renal failure type: unspecified Qualified Code(s): N17.9 - Acute kidney failure, unspecified Is this a current diagnosis for this admission?: Yes Plan: Improving with IV fluids. Continue to monitor renal function and urine output. Avoid nephrotoxic agents. (2) A-fib Qualifiers: Atrial fibrillation type: chronic Qualified Code(s): I48.2 - Chronic atrial fibrillation Is this a current diagnosis for this admission?: Yes Plan: A sensed, V paced rhythm. Coreg at reduced dose of 3.125 mg twice a day with hold parameters. Continue Xarelto and Plavix.. (3) COPD (chronic obstructive pulmonary disease) Is this a current diagnosis for this admission?: Yes Plan: Not in exacerbation. Continue outpatient inhalers. (4) Dehydration Is this a current diagnosis for this admission?: Yes Plan: Continue to hold diuretics and LORENE inhibitors. IV fluids, monitor renal function. (5) Hypotension Qualifiers: Hypotension type: unspecified hypotension type Qualified Code(s): I95.9 - Hypotension, unspecified Is this a current diagnosis for this admission?: Yes Plan: Due to multiple medications. No evidence of sepsis. A.m. cortisol was 11.5 (6) Coronary artery disease Is this a current diagnosis for this admission?: Yes Plan: Plavix, [id number] dose with hold parameters. LORENE inhibitor on hold due to renal function. (7) Cardiomyopathy Qualifiers: Cardiomyopathy type: ischemic Qualified Code(s): I25.5 - Ischemic cardiomyopathy Is this a current diagnosis for this admission?: Yes Plan: No evidence of acute exacerbation of CHF. Watch closely for signs and symptoms of fluid overload. (8) Diarrhea Qualifiers: Diarrhea type: unspecified type Qualified Code(s): R19.7 - Diarrhea, unspecified Is this a current diagnosis for this admission?: Yes Plan: Resolved (9) Peripheral vascular disease Is this a current diagnosis for this admission?: Yes Plan: Status post recent vascular surgery. Continue Xarelto and Plavix. (10) History of pulmonary embolism Is this a current diagnosis for this admission?: Yes Plan: Continue Xarelto (11) History of DVT (deep vein thrombosis) Is this a current diagnosis for this admission?: Yes Plan: Continue Xarelto - Time Time Spent with patient: 35 or more minutes
[2018-03-05] MEDS: RIVAROXABAN 10 MG TABLET PO SCH (16:58)
[2018-03-05] MEDS: ATORVASTATIN CALCIUM 20 MG TABLET PO SCH (21:11)
[2018-03-06] MEDS: ALPRAZOLAM 0.25 MG TABLET PO PRN ×3 (00:12→17:42)
[2018-03-06] MEDS: OXYCODONE HCL IR 5 MG TABLET PO PRN ×6 (00:12→23:10)
[2018-03-06] MEDS: LANSOPRAZOLE 30 MG TAB.RAP.DR PO SCH (05:48)
[2018-03-06 06:04] LABS: ANION GAP 6 (5-19); BLOOD UREA NITROGEN 15 mg/dL (7-20); CALCIUM 8.3 mg/dL (8.4-10.2); CARBON DIOXIDE 25 mmol/L (22-30); CHLORIDE 108 mmol/L (98-107); GLUCOSE 85 mg/dL (75-110); PHOSPHORUS 2.9 mg/dL (2.5-4.5); POTASSIUM 4.5 mmol/L (3.6-5.0); SODIUM 139.4 mmol/L (137-145)
[2018-03-06] MEDS: IPRATROPIUM/ALBUTEROL 0.5-2.5 MG/3 ML AMPUL NEB SCH ×3 (08:31→20:27)
[2018-03-06] MEDS: CLOPIDOGREL BISULFATE 75 MG TABLET PO SCH (08:36)
[2018-03-06] MEDS: TIOTROPIUM BROMIDE DPI 5 CAP/KIT (18 MCG/CAP) IH SCH (08:36)
[2018-03-06] MEDS: LACTOBACILLUS ACIDOPHILUS 250 MG TAB PO SCH ×2 (09:36→17:42)
[2018-03-06] MEDS: CARVEDILOL 3.125 MG TABLET PO SCH ×2 (09:36→21:46)
[2018-03-06] MEDS: MAGNESIUM OXIDE 400 MG TABLET PO SCH ×2 (09:36→17:42)
[2018-03-06] MEDS: BUDESONIDE/FORMOTEROL 160-4.5 MCG 60 PUFF/6 GM MDI IH SCH ×2 (09:36→17:42)
[2018-03-06] MEDS ORDERED: FUROSEMIDE 40 MG TABLET PO SCH (11:30)
[2018-03-06] MEDS ORDERED: LISINOPRIL 5 MG TABLET PO ONE (11:30)
--- NOTE | 2018-03-06 12:11 | PDOC TRANSFER SUMMARY ---
General - Admit/Disc Date/PCP Admission Date/Primary Care Provider: 03/03/18 21:31 Discharge Date: 03/06/18 - Discharge Diagnosis (1) Acute renal failure Is this a current diagnosis for this admission?: Yes (2) A-fib Is this a current diagnosis for this admission?: Yes (3) COPD (chronic obstructive pulmonary disease) Is this a current diagnosis for this admission?: Yes (4) Dehydration Is this a current diagnosis for this admission?: Yes (5) Hypotension Is this a current diagnosis for this admission?: Yes (6) Coronary artery disease Is this a current diagnosis for this admission?: Yes (7) Cardiomyopathy Is this a current diagnosis for this admission?: Yes (8) Diarrhea Is this a current diagnosis for this admission?: Yes (9) Peripheral vascular disease Is this a current diagnosis for this admission?: Yes (10) History of pulmonary embolism Is this a current diagnosis for this admission?: Yes (11) History of DVT (deep vein thrombosis) Is this a current diagnosis for this admission?: Yes - Additional Information Resuscitation Status: Full Code Discharge Diet: Cardiac Discharge Activity: Activity As Tolerated Prescriptions: Oxycodone HCl [Oxy-Ir 5 mg Tablet] 5 mg PO Q4HP PRN #20 tablet PRN Reason: For Pain Scale 3-5 Alprazolam [Xanax] 0.25 mg PO Q6HP PRN #20 tablet PRN Reason: Anxiety Home Medications: Budesonide/Formoterol Fumarate [Symbicort HFA 160-4.5 mcg Inhaler 6 gm] 2 puff IH BID 03/04/18 Clopidogrel Bisulfate [Plavix 75 mg Tablet] 75 mg PO QAM 03/04/18 Pantoprazole Sodium [Protonix] 40 mg PO Q6AM 03/04/18 Pravastatin Sodium [Pravachol] 80 mg PO QHS@2000 03/04/18 Rivaroxaban [Xarelto] 20 mg PO QPM 03/04/18 Tiotropium [place] [Spiriva Handihaler 18 mcg/dose (30 Dose)] 18 mcg IH QAM 07/12 Acetaminophen [Tylenol 325 mg Tablet] 650 mg PO Q4HP PRN tablet 03/06/18 Alprazolam [Xanax] 0.25 mg PO Q6HP PRN #20 tablet 03/06/18 Carvedilol [Coreg 3.125 mg Tablet] 6.25 mg PO Q12 tablet 03/06/18 Furosemide [Lasix 40 mg Tablet] 40 mg PO MOWEFR tablet 03/06/18 Ipratropium/Albuterol Sulfate [Duoneb 3 ml Ampul] 3 ml NEB RTQ3HP PRN vial.neb 03/06/18 Lactobacillus Acidophilus [Bacid 250 mg Tablet] 500 mg PO BID tab 03/06/18 Lisinopril [Prinivil 5 mg Tablet] 2.5 mg PO DAILY tablet 03/06/18 Oxycodone HCl [Oxy-Ir 5 mg Tablet] 5 mg PO Q4HP PRN #20 tablet 03/06/18 Spironolactone [Aldactone 25 mg Tablet] 25 mg PO TUTHSA tablet 03/06/18 History of Present Illness Admission Date/PCP: 03/03/18 21:31 History of Present Illness: The patient is a 63-year-old gentleman with past medical history of Coronary artery disease Hypertension Atrial fibrillation On chronic anticoagulation with Xarelto Pulmonary embolism Osteomyelitis-status post partial amputation of bilateral fifth toes. 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 The patient was emergently taken to the OR and was found to have thrombotic occlusion of the iliac distal aorta, bilateral superficial femoral arteries, popliteal arteries and tibial vessels with critical limb ischemia and compartment syndrome of the right lower extremity. He underwent bifemoral expiration aortoiliac thrombectomy bilaterally with femoral incision, and distal lower extremity embolectomy. According to documentation from [facility], he underwent 4 compartment fasciotomy of the right lower extremity and wound VAC placement and fasciotomy of the left lower extremity. Echocardiogram showed a left ventricular ejection fraction of 20-25%. On February 27 was discharged to a [facility] facility for [facility]hab. He was admitted on March 02 with hypotension. Initial blood pressures noted to be in the 50s systolic. He was found to have acute renal failure with a BUN of 72 and creatinine of 2.6. The patient received IV fluid resuscitation. Systolic blood pressures improved Outpatient medications were adjusted. Home medications: Plavix 75 mg daily Protonix 40 mg daily Lisinopril 20 mg daily Lasix 40 mg twice a day Coreg 25 mg twice a day Symbicort twice a day Pravachol 80 mg at bedtime Xarelto 20 mg daily in the evening Spironolactone 25 mg daily Spiriva 18 mcg inhaled daily Percocet 5/325 every 4 hours as needed Of note, the patient's tells me that he is not supposed to be on amiodarone or aspirin. These were however listed on the [facility] facility medication list. His is at the bedside and plan of care was discussed in detail. Spironolactone was reduced to Friday Lasix was chnged to 40mg Fri Coreg gonzales was reduced to 6.5mg BID Lisinopril was reduced to 2.5mg PO daily Prescriptions for Xanax and Oxycodone were written Kidney function has normalized. Orthostatic BP ok. Stable for discharge back to SNF for Rehab Follow up Cardiology and Vascular surgery in 1 week Hospital Course Hospital Course: As above Physical Exam Vital Signs: Temp Pulse Resp BP Pulse Ox 98.6 F 82 18 111/70 95 03/06/18 07:43 03/06/18 07:52 03/06/18 07:52 03/06/18 07:43 03/06/18 07:52 Intake & Output 03/05/18 03/06/18 03/07/18 06:59 06:59 06:59 Intake Total 4656 3185 Output Total 1050 2475 Balance 3606 710 Weight 81.7 kg 82.7 kg General appearance: PRESENT: no acute distress Respiratory exam: PRESENT: symmetrical, unlabored Neurological exam: PRESENT: alert, awake Results Laboratory Results: 03/05/18 04:30 03/06/18 05:15 03/06/18 05:15 Sodium 139.4 Potassium 4.5 Chloride 108 H Carbon Dioxide 25 Anion Gap 6 BUN 15 Creatinine 0.79 Est GFR ( Amer) > 60 Est GFR (Non-Af Amer) > 60 Glucose 85 Calcium 8.3 L Phosphorus 2.9 Magnesium 2.0 03/04/18 03/04/18 03/04/18 01:28 01:28 07:22 Creatine Kinase < 20 L 27 L CK-MB (CK-2) 0.71 Troponin I < 0.012 NT-Pro-B Natriuret Pep 03/04/18 03/05/18 07:22 04:30 Creatine Kinase CK-MB (CK-2) 3.12 Troponin I < 0.012 NT-Pro-B Natriuret Pep 3380 H Impressions: Chest X-Ray 03/03/18 19:35 IMPRESSION: Chronic lung changes. There may be a minimal right pleural effusion. Qualifiers - * PATIENT BEING DISCHARGED WITH ANY OF THE FOLLOWING DIAGNOSIS: No Plan Time Spent: Greater than 30 Minutes
[2018-03-06] MEDS ORDERED: FUROSEMIDE 40 MG TABLET PO ONE (13:30)
--- NOTE | 2018-03-06 16:45 | PDOC DISCHARGE SUMMARY ---
General - Admit/Disc Date/PCP Admission Date/Primary Care Provider: 03/03/18 21:31 Discharge Date: 03/06/18 - Discharge Diagnosis (1) Acute renal failure Is this a current diagnosis for this admission?: Yes (2) A-fib Is this a current diagnosis for this admission?: Yes (3) COPD (chronic obstructive pulmonary disease) Is this a current diagnosis for this admission?: Yes (4) Dehydration Is this a current diagnosis for this admission?: Yes (5) Hypotension Is this a current diagnosis for this admission?: Yes (6) Coronary artery disease Is this a current diagnosis for this admission?: Yes (7) Cardiomyopathy Is this a current diagnosis for this admission?: Yes (8) Diarrhea Is this a current diagnosis for this admission?: Yes (9) Peripheral vascular disease Is this a current diagnosis for this admission?: Yes (10) History of pulmonary embolism Is this a current diagnosis for this admission?: Yes (11) History of DVT (deep vein thrombosis) Is this a current diagnosis for this admission?: Yes - Additional Information Resuscitation Status: Full Code Discharge Diet: Cardiac Discharge Activity: Activity As Tolerated Prescriptions: Oxycodone HCl [Oxy-Ir 5 mg Tablet] 5 mg PO Q4HP PRN #20 tablet PRN Reason: For Pain Scale 3-5 Alprazolam [Xanax] 0.25 mg PO Q6HP PRN #20 tablet PRN Reason: Anxiety Home Medications: Budesonide/Formoterol Fumarate [Symbicort HFA 160-4.5 mcg Inhaler 6 gm] 2 puff IH BID 03/04/18 Clopidogrel Bisulfate [Plavix 75 mg Tablet] 75 mg PO QAM 03/04/18 Pantoprazole Sodium [Protonix] 40 mg PO Q6AM 03/04/18 Pravastatin Sodium [Pravachol] 80 mg PO QHS@2000 03/04/18 Rivaroxaban [Xarelto] 20 mg PO QPM 03/04/18 Tiotropium [place] [Spiriva Handihaler 18 mcg/dose (30 Dose)] 18 mcg IH QAM 07/12 Acetaminophen [Tylenol 325 mg Tablet] 650 mg PO Q4HP PRN tablet 03/06/18 Alprazolam [Xanax] 0.25 mg PO Q6HP PRN #20 tablet 03/06/18 Carvedilol [Coreg 3.125 mg Tablet] 6.25 mg PO Q12 tablet 03/06/18 Furosemide [Lasix 40 mg Tablet] 40 mg PO MOWEFR tablet 03/06/18 Ipratropium/Albuterol Sulfate [Duoneb 3 ml Ampul] 3 ml NEB RTQ3HP PRN vial.neb 03/06/18 Lactobacillus Acidophilus [Bacid 250 mg Tablet] 500 mg PO BID tab 03/06/18 Lisinopril [Prinivil 5 mg Tablet] 2.5 mg PO DAILY tablet 03/06/18 Oxycodone HCl [Oxy-Ir 5 mg Tablet] 5 mg PO Q4HP PRN #20 tablet 03/06/18 Spironolactone [Aldactone 25 mg Tablet] 25 mg PO TUTHSA tablet 03/06/18 History of Present Illness History of Present Illness: History of Present Illness: The patient is a 63-year-old gentleman with past medical history of Coronary artery disease Hypertension Atrial fibrillation On chronic anticoagulation with Xarelto Pulmonary embolism Osteomyelitis-status post partial amputation of bilateral fifth toes. 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 The patient was emergently taken to the OR and was found to have thrombotic occlusion of the iliac distal aorta, bilateral superficial femoral arteries, popliteal arteries and tibial vessels with critical limb ischemia and compartment syndrome of the right lower extremity. He underwent bifemoral expiration aortoiliac thrombectomy bilaterally with femoral incision, and distal lower extremity embolectomy. According to documentation from [facility], he underwent 4 compartment fasciotomy of the right lower extremity and wound VAC placement and fasciotomy of the left lower extremity. Echocardiogram showed a left ventricular ejection fraction of 20-25%. On February 27 was discharged to a long-term facility for rehab. He was admitted on March 02 with hypotension. Initial blood pressures noted to be in the 50s systolic. He was found to have acute renal failure with a BUN of 72 and creatinine of 2.6. The patient received IV fluid resuscitation. Systolic blood pressures improved Outpatient medications were adjusted. Home medications: Plavix 75 mg daily Protonix 40 mg daily Lisinopril 20 mg daily Lasix 40 mg twice a day Coreg 25 mg twice a day Symbicort twice a day Pravachol 80 mg at bedtime Xarelto 20 mg daily in the evening Spironolactone 25 mg daily Spiriva 18 mcg inhaled daily Percocet 5/325 every 4 hours as needed Of note, the patient's tells me that he is not supposed to be on amiodarone or aspirin. These were however listed on the long-term facility medication list. His is at the bedside and plan of care was discussed in detail. Spironolactone was reduced to Friday Lasix was chnged to 40mg Fri Coreg gonzales was reduced to 6.5mg BID Lisinopril was reduced to 2.5mg PO daily Prescriptions for Xanax and Oxycodone were written Kidney function has normalized. Orthostatic BP ok. Stable for discharge. Follow up Cardiology and Vascular surgery in 1 week Daily dressing changes of Left leg with saline dressing. Hospital Course Hospital Course: As above Physical Exam Vital Signs: Temp Pulse Resp BP Pulse Ox 98.4 F 82 20 119/66 100 03/06/18 15:57 03/06/18 15:57 03/06/18 15:57 03/06/18 15:57 03/06/18 15:57 Intake & Output 03/05/18 03/06/18 03/07/18 06:59 06:59 06:59 Intake Total 4656 3185 472 Output Total 1050 6955 Balance 3606 710 472 Weight 81.7 kg 82.7 kg General appearance: PRESENT: no acute distress Respiratory exam: PRESENT: symmetrical, unlabored Neurological exam: PRESENT: alert, awake, oriented to person, oriented to place , oriented to time, oriented to situation Results Laboratory Results: 03/05/18 04:30 03/06/18 05:15 03/06/18 05:15 Sodium 139.4 Potassium 4.5 Chloride 108 H Carbon Dioxide 25 Anion Gap 6 BUN 15 Creatinine 0.79 Est GFR ( Amer) > 60 Est GFR (Non-Af Amer) > 60 Glucose 85 Calcium 8.3 L Phosphorus 2.9 Magnesium 2.0 03/04/18 03/04/18 03/04/18 01:28 01:28 07:22 Creatine Kinase < 20 L 27 L CK-MB (CK-2) 0.71 Troponin I < 0.012 NT-Pro-B Natriuret Pep 03/04/18 03/05/18 07:22 04:30 Creatine Kinase CK-MB (CK-2) 3.12 Troponin I < 0.012 NT-Pro-B Natriuret Pep 3380 H Impressions: Chest X-Ray 03/03/18 19:35 IMPRESSION: Chronic lung changes. There may be a minimal right pleural effusion. Qualifiers - * PATIENT BEING DISCHARGED WITH ANY OF THE FOLLOWING DIAGNOSIS: No Plan Time Spent: Greater than 30 Minutes
--- NOTE | 2018-03-06 17:33 | PDOC PROGRESS REPORT ---
Subjective Progress Note for:: 03/06/18 Subjective:: 63 yr old male who presented extremity on March 02 with hypotension. Initial blood pressures noted to be in the 50s systolic. He was found to have acute renal failure with a BUN of 72 and creatinine of 2.6. He was treated with IV fluids, and BP meds and diuretics were held. Kidney function has normalized. Orthostatic BP ok. Of note, the patient's tells me that he is not supposed to be on amiodarone or aspirin. These were however listed on the residential facility medication list. Spironolactone was reduced to Friday Lasix was chnged to 40mg Fri Coreg gonzales was reduced to 6.5mg BID Lisinopril was reduced to 2.5mg PO daily He presented to this ER on February 11, 2018 with shortness of breath, he had missed his Xarelto for a few days, and was found to have a left main pulmonary artery thrombus and significant bilateral lower extremity ischemia and was transferred to [facility]. Needs folow up with vascular surgery and Cardiology- [place] in 1 week. I did his discharge and transfer summaries- there was some problem with Insurance accepting his care back at [place], hence discharge delayed. Reason For Visit: HYPOTENSION PRERENAL AZO, ARF Physical Exam Vital Signs: Temp Pulse Resp BP Pulse Ox 98.4 F 82 20 119/66 100 03/06/18 15:57 03/06/18 15:57 03/06/18 15:57 03/06/18 15:57 03/06/18 15:57 Intake & Output 03/05/18 03/06/18 03/07/18 06:59 06:59 06:59 Intake Total 2826 3185 472 Output Total 2744 6105 Balance 3315 360 472 Weight 81.7 kg 82.7 kg General appearance: PRESENT: no acute distress, thin Head exam: PRESENT: normocephalic Mouth exam: PRESENT: moist Respiratory exam: PRESENT: symmetrical, unlabored. ABSENT: crackles Cardiovascular exam: PRESENT: RRR GI/Abdominal exam: PRESENT: normal bowel sounds, soft. ABSENT: tenderness Rectal exam: PRESENT: deferred Neurological exam: PRESENT: alert, awake, oriented to person, oriented to place , oriented to time, oriented to situation Results Laboratory Results: 03/05/18 04:30 03/06/18 05:15 03/06/18 05:15 Sodium 139.4 Potassium 4.5 Chloride 108 H Carbon Dioxide 25 Anion Gap 6 BUN 15 Creatinine 0.79 Est GFR ( Amer) > 60 Est GFR (Non-Af Amer) > 60 Glucose 85 Calcium 8.3 L Phosphorus 2.9 Magnesium 2.0 03/04/18 03/04/18 03/04/18 01:28 01:28 07:22 Creatine Kinase < 20 L 27 L CK-MB (CK-2) 0.71 Troponin I < 0.012 NT-Pro-B Natriuret Pep 03/04/18 03/05/18 07:22 04:30 Creatine Kinase CK-MB (CK-2) 3.12 Troponin I < 0.012 NT-Pro-B Natriuret Pep 3380 H Impressions: Chest X-Ray 03/03/18 19:35 IMPRESSION: Chronic lung changes. There may be a minimal right pleural effusion. Assessment & Plan - Diagnosis (1) Acute renal failure Qualifiers: Acute renal failure type: unspecified Qualified Code(s): N17.9 - Acute kidney failure, unspecified Is this a current diagnosis for this admission?: Yes Plan: resolved with treatment (2) A-fib Qualifiers: Atrial fibrillation type: chronic Qualified Code(s): I48.2 - Chronic atrial fibrillation Is this a current diagnosis for this admission?: Yes Plan: On Coreg- dose adjusted Continue Xarelto and Plavix.. (3) COPD (chronic obstructive pulmonary disease) Is this a current diagnosis for this admission?: Yes Plan: Not in exacerbation. Continue outpatient inhalers. (4) Hypotension Qualifiers: Hypotension type: unspecified hypotension type Qualified Code(s): I95.9 - Hypotension, unspecified Is this a current diagnosis for this admission?: Yes (5) Dehydration Is this a current diagnosis for this admission?: Yes Plan: Resolved. (6) Coronary artery disease Is this a current diagnosis for this admission?: Yes Plan: Plavix, blya-vuzxeib-cydir dose with hold parameters. LORENE inhibitor on hold due to renal function. (7) Cardiomyopathy Qualifiers: Cardiomyopathy type: ischemic Qualified Code(s): I25.5 - Ischemic cardiomyopathy Is this a current diagnosis for this admission?: Yes Plan: No evidence of acute exacerbation of CHF. (8) Diarrhea Qualifiers: Diarrhea type: unspecified type Qualified Code(s): R19.7 - Diarrhea, unspecified Is this a current diagnosis for this admission?: Yes Plan: Resolved (9) Peripheral vascular disease Is this a current diagnosis for this admission?: Yes Plan: Status post recent Vascular surgery. Continue Xarelto and Plavix. (10) History of pulmonary embolism Is this a current diagnosis for this admission?: Yes Plan: Continue Xarelto (11) History of DVT (deep vein thrombosis) Is this a current diagnosis for this admission?: Yes Plan: Continue Xarelto - Time Time Spent with patient: 25-34 minutes
[2018-03-06] MEDS: RIVAROXABAN 10 MG TABLET PO SCH (17:43)
[2018-03-06] MEDS: ATORVASTATIN CALCIUM 20 MG TABLET PO SCH (21:42)
[2018-03-07] MEDS: ALPRAZOLAM 0.25 MG TABLET PO PRN ×3 (02:35→18:11)
[2018-03-07] MEDS: OXYCODONE HCL IR 5 MG TABLET PO PRN ×5 (05:37→23:29)
[2018-03-07] MEDS: LANSOPRAZOLE 30 MG TAB.RAP.DR PO SCH (05:37)
[2018-03-07 06:52] LABS: BLOOD UREA NITROGEN 16 mg/dL (7-20); CALCIUM 8.6 mg/dL (8.4-10.2); GLUCOSE 88 mg/dL (75-110)
[2018-03-07 06:53] LABS: ANION GAP 8 (5-19); CARBON DIOXIDE 27 mmol/L (22-30); CHLORIDE 101 mmol/L (98-107); PHOSPHORUS 3.5 mg/dL (2.5-4.5); POTASSIUM 4.7 mmol/L (3.6-5.0); SODIUM 136.1 mmol/L (137-145)
[2018-03-07] MEDS ORDERED: SPIRONOLACTONE 25 MG TABLET PO SCH (08:00)
[2018-03-07] MEDS: IPRATROPIUM/ALBUTEROL 0.5-2.5 MG/3 ML AMPUL NEB SCH ×3 (08:21→19:56)
[2018-03-07] MEDS: TIOTROPIUM BROMIDE DPI 5 CAP/KIT (18 MCG/CAP) IH SCH (09:40)
[2018-03-07] MEDS: BUDESONIDE/FORMOTEROL 160-4.5 MCG 60 PUFF/6 GM MDI IH SCH ×2 (09:40→18:06)
[2018-03-07] MEDS: LACTOBACILLUS ACIDOPHILUS 250 MG TAB PO SCH ×2 (09:42→18:05)
[2018-03-07] MEDS: LISINOPRIL 5 MG TABLET PO SCH (09:42)
[2018-03-07] MEDS: MAGNESIUM OXIDE 400 MG TABLET PO SCH ×2 (09:42→18:05)
[2018-03-07] MEDS: CLOPIDOGREL BISULFATE 75 MG TABLET PO SCH (09:42)
[2018-03-07] MEDS: CARVEDILOL 3.125 MG TABLET PO SCH ×2 (09:43→21:33)
[2018-03-07] MEDS: RIVAROXABAN 10 MG TABLET PO SCH (18:05)
[2018-03-07] MEDS: ATORVASTATIN CALCIUM 20 MG TABLET PO SCH (19:37)
--- NOTE | 2018-03-07 20:24 | PDOC PROGRESS REPORT ---
Subjective Progress Note for:: 03/07/18 Subjective:: JACKSON BLUNT JR is a 63 year old male with a past medical history of oxygen dependent COPD with ongoing tobacco dependence, atrial fibrillation, coronary artery disease status post stenting and permanent pacemaker. He presented to [facility] ED from a group home facility 03/03/2018 with HYPOtension. The patient was seen this morning on rounds. He is resting comfortably in bed on room air. He is waiting to be transferred back to [place]. The patient is asking if he can go for a walk outside. Upon assessment, the patient's lungs are clear to auscultation. S1S2. No murmur/rubs/gallops. No peripheral edema. He is able to answer all questions appropriately and without pause. Lower extremity surgical sites C/D/I. Reason For Visit: HYPOTENSION PRERENAL AZO, ARF Physical Exam Vital Signs: Temp Pulse Resp BP Pulse Ox 97.5 F 80 16 94/54 L 94 03/07/18 15:37 03/07/18 19:00 03/07/18 15:37 03/07/18 15:37 03/07/18 15:37 Intake & Output 03/06/18 03/07/18 03/08/18 06:59 06:59 06:59 Intake Total 3185 2218 1064 Output Total 2475 450 Balance 710 2218 614 Weight 82.7 kg 76.5 kg General appearance: PRESENT: thin Head exam: PRESENT: atraumatic Eye exam: PRESENT: conjunctiva pink, PERRLA Mouth exam: PRESENT: moist, tongue midline Neck exam: PRESENT: full ROM Respiratory exam: PRESENT: clear to auscultation sandra, symmetrical, unlabored Cardiovascular exam: PRESENT: +S1, +S2 Pulses: PRESENT: normal radial pulses, normal dorsalis pedis pul GI/Abdominal exam: PRESENT: normal bowel sounds, soft. ABSENT: tenderness Rectal exam: PRESENT: deferred Extremities exam: PRESENT: full ROM Musculoskeletal exam: PRESENT: ambulatory, full ROM Neurological exam: PRESENT: alert, awake, oriented to person, oriented to place , oriented to time, oriented to situation Psychiatric exam: PRESENT: appropriate affect Skin exam: PRESENT: dry, intact, warm Results Laboratory Results: 03/05/18 04:30 03/07/18 05:47 03/07/18 05:47 Sodium 136.1 L Potassium 4.7 Chloride 101 Carbon Dioxide 27 Anion Gap 8 BUN 16 Creatinine 0.81 Est GFR ( Amer) > 60 Est GFR (Non-Af Amer) > 60 Glucose 88 Calcium 8.6 Phosphorus 3.5 Magnesium 1.9 03/04/18 03/04/18 03/04/18 01:28 01:28 07:22 Creatine Kinase < 20 L 27 L CK-MB (CK-2) 0.71 Troponin I < 0.012 NT-Pro-B Natriuret Pep 03/04/18 03/05/18 07:22 04:30 Creatine Kinase CK-MB (CK-2) 3.12 Troponin I < 0.012 NT-Pro-B Natriuret Pep 3380 H Impressions: Chest X-Ray 03/03/18 19:35 IMPRESSION: Chronic lung changes. There may be a minimal right pleural effusion. Status: Imported from PACS Assessment & Plan - Diagnosis (1) Acute renal failure Qualifiers: Acute renal failure type: unspecified Qualified Code(s): N17.9 - Acute kidney failure, unspecified Is this a current diagnosis for this admission?: Yes Plan: Improved with IVF. Creatinine returned to baseline. Resumed LORENE Inhibitor (2) A-fib Qualifiers: Atrial fibrillation type: chronic Qualified Code(s): I48.2 - Chronic atrial fibrillation Is this a current diagnosis for this admission?: Yes Plan: History of AFIB s/p pacemaker A sensing, V paced Continue Coreg PO daily Continue plavix and xarelto (3) History of DVT (deep vein thrombosis) Is this a current diagnosis for this admission?: Yes Plan: Continue Xarelto (4) History of pulmonary embolism Is this a current diagnosis for this admission?: Yes Plan: Continue Xarelto (5) Peripheral vascular disease Is this a current diagnosis for this admission?: Yes Plan: S/p Vascular surgery Of note, the patient presented to this ER on February 11, 2018 with shortness of breath, he had missed a few days of his Xarelto and was found to have a left main pulmonary artery thrombus with significant bilateral lower extremity ischemia. He was emergently transferred to [facility]. and taken to the OR, found to have thrombotic occlusion of the iliac distal aorta, bilateral superficial femoral arteries, popliteal arteries and tibial vessels with critical limb ischemia and compartment syndrome of the right lower extremity.He underwent bifemoral expiration aortoiliac thrombectomy bilaterally with femoral incision, and distal lower extremity embolectomy. According to documentation from [facility] , he underwent 4 compartment fasciotomy of the right lower extremity and wound VAC placement of fasciotomy to the left lower extremity. Daily lower extremity dressing changes. Continue Xarelto and Plavix (6) COPD (chronic obstructive pulmonary disease) Qualifiers: COPD type: unspecified COPD Qualified Code(s): J44.9 - Chronic obstructive pulmonary disease, unspecified Is this a current diagnosis for this admission?: Yes Plan: No exacerbation Continue home dose inhalers (7) Hypotension Qualifiers: Hypotension type: unspecified hypotension type Qualified Code(s): I95.9 - Hypotension, unspecified Is this a current diagnosis for this admission?: Yes Plan: Resolved. Likely related to polypharmacy No evidence of sepsis (8) Coronary artery disease Is this a current diagnosis for this admission?: Yes Plan: History of CAD Continue Plavix and beta cynthia Resumed lisinopril now that renal function is improved (9) Cardiomyopathy Qualifiers: Cardiomyopathy type: ischemic Qualified Code(s): I25.5 - Ischemic cardiomyopathy Is this a current diagnosis for this admission?: Yes Plan: No evidence of CHF exacerbation - Time Time Spent with patient: 15-24 minutes Medications reviewed and adjusted accordingly: Yes Anticipated discharge: SNF Within: within 48 hours - Inpatient Certification Based on my medical assessment, after consideration of the patient's comorbidities, presenting symptoms, or acuity I expect that the services needed warrant INPATIENT care.: Yes I certify that my determination is in accordance with my understanding of Medicare's requirements for reasonable and necessary INPATIENT services [42 CFR 412.3e].: Yes Medical Necessity: Risk of Complication if Not Cared For in Hospital - Plan Summary Plan Summary: No changes to plan of care. Waiting for transfer to [facility].
[2018-03-08] MEDS: ALPRAZOLAM 0.25 MG TABLET PO PRN ×4 (02:23→23:04)
[2018-03-08] MEDS: OXYCODONE HCL IR 5 MG TABLET PO PRN ×4 (04:07→21:05)
[2018-03-08] MEDS: LANSOPRAZOLE 30 MG TAB.RAP.DR PO SCH (05:13)
[2018-03-08] MEDS: IPRATROPIUM/ALBUTEROL 0.5-2.5 MG/3 ML AMPUL NEB SCH ×3 (08:36→20:06)
[2018-03-08] MEDS: CARVEDILOL 3.125 MG TABLET PO SCH ×2 (09:01→21:05)
[2018-03-08] MEDS: LISINOPRIL 5 MG TABLET PO SCH (09:02)
[2018-03-08] MEDS: CLOPIDOGREL BISULFATE 75 MG TABLET PO SCH (09:03)
[2018-03-08] MEDS: LACTOBACILLUS ACIDOPHILUS 250 MG TAB PO SCH ×2 (09:03→18:20)
[2018-03-08] MEDS: TIOTROPIUM BROMIDE DPI 5 CAP/KIT (18 MCG/CAP) IH SCH (09:05)
[2018-03-08] MEDS: MAGNESIUM OXIDE 400 MG TABLET PO SCH ×2 (09:09→18:20)
[2018-03-08] MEDS: BUDESONIDE/FORMOTEROL 160-4.5 MCG 60 PUFF/6 GM MDI IH SCH ×2 (09:09→18:21)
--- NOTE | 2018-03-08 15:33 | PDOC PROGRESS REPORT ---
Subjective Progress Note for:: 03/08/18 Subjective:: JACKSON BLUNT JR is a 63 year old male with a past medical history of oxygen dependent COPD with ongoing tobacco dependence, atrial fibrillation, coronary artery disease status post stenting and permanent pacemaker. He presented to [facility] ED from a nursing home facility 03/03/2018 with HYPOtension. The patient was seen this morning on rounds. He is resting comfortably in bed on room air. He is waiting to be transferred back to [place]. Upon assessment, the patient's lungs are clear to auscultation. S1S2. No murmur/rubs/gallops. No peripheral edema. He is able to answer all questions appropriately and without pause. Lower extremity surgical sites C/D/I. The patient states that his pain is not well-controlled, he specifically states he is having pain at the surgical sites of his previous fasciotomies in the bilateral lower extremities. Plan to adjust pain regimen accordingly Reason For Visit: HYPOTENSION PRERENAL AZO, ARF Physical Exam Vital Signs: Temp Pulse Resp BP Pulse Ox 97.9 F 84 16 100/69 100 03/08/18 04:10 03/08/18 14:00 03/08/18 13:55 03/08/18 04:10 03/08/18 04:10 Intake & Output 03/07/18 03/08/18 03/09/18 06:59 06:59 06:59 Intake Total 2218 1376 Output Total 750 Balance 2218 626 Weight 76.5 kg 76.6 kg General appearance: PRESENT: no acute distress, thin Head exam: PRESENT: atraumatic Eye exam: PRESENT: conjunctiva pink, PERRLA Mouth exam: PRESENT: moist Teeth exam: PRESENT: poor dentation Neck exam: PRESENT: full ROM Respiratory exam: PRESENT: clear to auscultation sandra, symmetrical, unlabored Cardiovascular exam: PRESENT: irregular rhythm Pulses: PRESENT: normal radial pulses, normal dorsalis pedis pul GI/Abdominal exam: PRESENT: soft. ABSENT: tenderness Rectal exam: PRESENT: deferred Extremities exam: PRESENT: full ROM Musculoskeletal exam: PRESENT: ambulatory, full ROM Neurological exam: PRESENT: alert, awake, oriented to person, oriented to place , oriented to time, oriented to situation Psychiatric exam: PRESENT: appropriate affect Skin exam: PRESENT: dry, normal color, warm, other - Multiple fasciotomy sites from previous hospitalization. Suture still in place. C/D/I. ABSENT: intact Results Laboratory Results: 03/05/18 04:30 03/07/18 05:47 03/04/18 03/04/18 03/04/18 01:28 01:28 07:22 Creatine Kinase < 20 L 27 L CK-MB (CK-2) 0.71 Troponin I < 0.012 NT-Pro-B Natriuret Pep 03/04/18 03/05/18 07:22 04:30 Creatine Kinase CK-MB (CK-2) 3.12 Troponin I < 0.012 NT-Pro-B Natriuret Pep 3380 H Impressions: Chest X-Ray 03/03/18 19:35 IMPRESSION: Chronic lung changes. There may be a minimal right pleural effusion. Status: Imported from PACS Assessment & Plan - Diagnosis (1) Acute renal failure Qualifiers: Acute renal failure type: unspecified Qualified Code(s): N17.9 - Acute kidney failure, unspecified Is this a current diagnosis for this admission?: Yes Plan: Improved with IVF. Creatinine returned to baseline. Resumed LORENE Inhibitor (2) A-fib Qualifiers: Atrial fibrillation type: chronic Qualified Code(s): I48.2 - Chronic atrial fibrillation Is this a current diagnosis for this admission?: Yes Plan: History of AFIB s/p pacemaker A sensing, V paced Continue Coreg PO daily Continue plavix and xarelto (3) History of DVT (deep vein thrombosis) Is this a current diagnosis for this admission?: Yes Plan: Continue Xarelto (4) History of pulmonary embolism Is this a current diagnosis for this admission?: Yes Plan: Continue Xarelto (5) Peripheral vascular disease Is this a current diagnosis for this admission?: Yes Plan: S/p Vascular surgery Of note, the patient presented to this ER on February 11, 2018 with shortness of breath, he had missed a few days of his Xarelto and was found to have a left main pulmonary artery thrombus with significant bilateral lower extremity ischemia. He was emergently transferred to [facility]. and taken to the OR, found to have thrombotic occlusion of the iliac distal aorta, bilateral superficial femoral arteries, popliteal arteries and tibial vessels with critical limb ischemia and compartment syndrome of the right lower extremity.He underwent bifemoral expiration aortoiliac thrombectomy bilaterally with femoral incision, and distal lower extremity embolectomy. According to documentation from [facility] , he underwent 4 compartment fasciotomy of the right lower extremity and wound VAC placement of fasciotomy to the left lower extremity. Daily lower extremity dressing changes. Continue Xarelto and Plavix Patient complaining of a significant amount of pain at the fasciotomy sites. Increased PO pain regiment from 5mg q4h to 10mg q6h of Oxycodone (6) COPD (chronic obstructive pulmonary disease) Qualifiers: COPD type: unspecified COPD Qualified Code(s): J44.9 - Chronic obstructive pulmonary disease, unspecified Is this a current diagnosis for this admission?: Yes Plan: No exacerbation Continue home dose inhalers (7) Hypotension Qualifiers: Hypotension type: unspecified hypotension type Qualified Code(s): I95.9 - Hypotension, unspecified Is this a current diagnosis for this admission?: Yes Plan: Resolved. Likely related to polypharmacy No evidence of sepsis (8) Coronary artery disease Is this a current diagnosis for this admission?: Yes Plan: History of CAD Continue Plavix and beta cynthia Resumed lisinopril now that renal function is improved (9) Cardiomyopathy Qualifiers: Cardiomyopathy type: ischemic Qualified Code(s): I25.5 - Ischemic cardiomyopathy Is this a current diagnosis for this admission?: Yes Plan: No evidence of CHF exacerbation
[2018-03-08] MEDS: RIVAROXABAN 10 MG TABLET PO SCH (18:20)
[2018-03-08] MEDS: ATORVASTATIN CALCIUM 20 MG TABLET PO SCH (20:28)
[2018-03-09] MEDS: OXYCODONE HCL IR 5 MG TABLET PO PRN ×2 (03:34→09:26)
[2018-03-09] MEDS: LANSOPRAZOLE 30 MG TAB.RAP.DR PO SCH (06:04)
[2018-03-09] MEDS: ALPRAZOLAM 0.25 MG TABLET PO PRN ×2 (06:11→13:13)
[2018-03-09] MEDS: IPRATROPIUM/ALBUTEROL 0.5-2.5 MG/3 ML AMPUL NEB SCH ×2 (08:16→14:11)
[2018-03-09] MEDS: BUDESONIDE/FORMOTEROL 160-4.5 MCG 60 PUFF/6 GM MDI IH SCH (09:06)
[2018-03-09] MEDS: TIOTROPIUM BROMIDE DPI 5 CAP/KIT (18 MCG/CAP) IH SCH (09:07)
[2018-03-09] MEDS: CARVEDILOL 3.125 MG TABLET PO SCH (09:07)
[2018-03-09] MEDS: MAGNESIUM OXIDE 400 MG TABLET PO SCH (09:07)
[2018-03-09] MEDS: LACTOBACILLUS ACIDOPHILUS 250 MG TAB PO SCH (09:07)
[2018-03-09] MEDS: CLOPIDOGREL BISULFATE 75 MG TABLET PO SCH (09:07)
[2018-03-09] MEDS: LISINOPRIL 5 MG TABLET PO SCH (09:08)
[2018-03-09] MEDS ORDERED: FUROSEMIDE 40 MG TABLET PO SCH (10:00)
[2018-03-09] MEDS ORDERED: SPIRONOLACTONE 25 MG TABLET PO SCH (11:30)
[2018-03-09] MEDS ORDERED: CARVEDILOL 3.125 MG TABLET PO SCH (11:47)
[2018-03-09] MEDS ORDERED: OXYCODONE HCL IR 5 MG TABLET PO PRN (13:46)
[2018-03-09 15:27] VITALS: BP 97/68
== END 2018-03-09 15:36 | DRG 683 ==
LOC: ER 19:16 → EH 21:31 → 3W 03-04 00:09
PROVIDERS: ADMIT Internal Medicine; ATTEND Internal Medicine
PROC: 3E0F73Z Introduction of Anti-inflammatory into Respiratory Tract, Via Natural or Artificial Opening (ICD-10-PCS; principal; 2018-03-04)
DX: N17.9 Acute kidney failure, unspecified (principal); J96.11 Chronic respiratory failure with hypoxia; I25.5 Ischemic cardiomyopathy; I48.2 Chronic atrial fibrillation; J44.9 Chronic obstructive pulmonary disease, unspecified; E86.0 Dehydration; I95.9 Hypotension, unspecified; I25.10 Atherosclerotic heart disease of native coronary artery without angina pectoris; R19.7 Diarrhea, unspecified; I73.9 Peripheral vascular disease, unspecified; I10 Essential (primary) hypertension; F17.210 Nicotine dependence, cigarettes, uncomplicated; F32.9 Major depressive disorder, single episode, unspecified; Z86.711 Personal history of pulmonary embolism; Z86.718 Personal history of other venous thrombosis and embolism; Z79.899 Other long term (current) drug therapy; Z79.01 Long term (current) use of anticoagulants; Z89.422 Acquired absence of other left toe(s); Z89.421 Acquired absence of other right toe(s); Z99.81 Dependence on supplemental oxygen; Z79.02 Long term (current) use of antithrombotics/antiplatelets; Z95.810 Presence of automatic (implantable) cardiac defibrillator; Z95.5 Presence of coronary angioplasty implant and graft; Z83.6 Family history of other diseases of the respiratory system; Z82.49 Family history of ischemic heart disease and other diseases of the circulatory system
CPT/HCPCS: 36415; 71045; 80048; 80053; 82533; 82550; 82553; 83605; 83735; 83880; 84100; 84443; 84484; 85025; 85027; 85379; 85610; 85730; 87040; 87493; 93005; 93010; 94640; 96360; 99291; G8978-GP; G8979-GP; J0834; J3490; J7030; J7620

== ENCOUNTER 2018-04-12 15:09 | Emergency (ER) | payer MEDICARE ==
[2018-04-12] MEDS ORDERED: ASPIRIN 81 MG TABLET, CHEWABLE PO ONE (15:10)
[2018-04-12 15:24] LABS: ABSOLUTE BASOPHILS # (AUTO) 0.1 10^3/uL (0.0-0.2); ABSOLUTE EOSINOPHILS # (AUTO) 0.4 10^3/uL (0.0-0.6); ABSOLUTE LYMPHOCYTES (AUTO) 0.9 10^3/uL (0.5-4.7); ABSOLUTE MONOCYTES (AUTO) 0.7 10^3/uL (0.1-1.4); ABSOLUTE NEUT (AUTO) 8.7 10^3/uL (1.7-8.2); BASOPHILS % (AUTO) 0.6 % (0-2); EOSINOPHILS % (AUTO) 3.8 % (0-6); HEMATOCRIT 42.2 % (37.9-51.0); HEMOGLOBIN 13.7 g/dL (13.5-17.0); LYMPHOCYTES % (AUTO) 8.2 % (13-45); MEAN CORPUSCULAR HEMOGLOBIN 26.9 pg (27.0-33.4); MEAN CORPUSCULAR HGB CONC 32.4 g/dL (32.0-36.0); MEAN CORPUSCULAR VOLUME 83 fl (80-97); MONOCYTES % (AUTO) 6.6 % (3-13); PLATELET COUNT 593 10^3/uL (150-450); RED BLOOD COUNT 5.08 10^6/uL (4.35-5.55); RED CELL DISTRIBUTION WIDTH 18.9 % (11.5-14.0); SEGMENTED NEUTROPHILS % (AUTO) 80.8 % (42-78); TOTAL CELLS COUNTED % (AUTO) 100 %; WHITE BLOOD COUNT 10.7 10^3/uL (4.0-10.5)
--- NOTE | 2018-04-12 15:41 | ER Document Report ---
ED General - General Mode of Arrival: Ambulatory Information source: Patient TRAVEL OUTSIDE OF THE [place] IN LAST 30 DAYS: No <MARISELA RIVERA - Last Filed: 04/12/18 16:07> <TRISTAN BOB - Last Filed: 04/13/18 02:38> <CARROLL KHAN - Last Filed: 04/13/18 05:53> - General Chief Complaint: Chest Pain Stated Complaint: CHEST PAIN Time Seen by Provider: 04/12/18 15:30 Notes: Patient is a 63 year old male on chronic O2 with hypertension, osteomyelitis, A. fib, CAD, a pacemaker with a history of bilateral DVT presents to the emergency department complaining of chest pain onset around 1200 today. Patient states he was laying down on his couch when he had a sudden onset of chest pain. He states his chest pain is exacerbated when supine, coughing, and deep breathing. He states his pain is still present between breaths but not as severe. Of significance, patient was diagnosed with bilateral lower extremities DVTs on 07/10/2009. He was also transferred from [facility] to [facility] for a pulmonary embolus on 02/21/2018. (MARISELA RIVERA) - Related Data Allergies/Adverse Reactions: No Known Allergies Allergy (Unverified 02/11/18 23:49) Past Medical History - General Information source: Patient - Social History Smoking Status: Current Some Day Smoker Frequency of alcohol use: None Drug Abuse: None Family History: COPD, Hypertension Patient has suicidal ideation: No Patient has homicidal ideation: No - Past Medical History Cardiac Medical History: Reports: Hx Atrial Fibrillation, Hx Coronary Artery Disease, Hx DVT - BLE 2009, Hx Heart Attack, Hx Hypertension Pulmonary Medical History: Reports: Hx COPD - Home O2 3L Psychiatric Medical History: Reports: Hx Depression Past Surgical History: Reports: Hx Cardiac Catheterization - Stent, Hx Pacemaker , Hx Vascular Surgery - Bilateral lower extremity DVT retrieval <MARISELA RIVERA - Last Filed: 04/12/18 16:07> Review of Systems - Review of Systems Constitutional: No symptoms reported EENT: No symptoms reported Cardiovascular: See HPI, Chest pain Respiratory: See HPI, Hurts to breathe Gastrointestinal: No symptoms reported Genitourinary: No symptoms reported Male Genitourinary: No symptoms reported Musculoskeletal: No symptoms reported Skin: No symptoms reported Hematologic/Lymphatic: No symptoms reported Neurological/Psychological: No symptoms reported -: Yes All other systems reviewed and negative <MARISELA RIVERA - Last Filed: 04/12/18 16:07> Physical Exam - General General appearance: Alert, Other - Appears uncomfortable - HEENT Head: Normocephalic, Atraumatic Eyes: Normal Conjunctiva: Normal Extraocular movements intact: Yes Pupils: PERRL Mucous membranes: Normal Neck: Normal - Respiratory Respiratory status: Tachypnea, Other - on O2 at bedside Chest status: Tender - Anterior lateral ribs tender to palpation bilaterally. Breath sounds: Other - Coarse breath sounds - Cardiovascular Rhythm: Regular Heart sounds: Normal auscultation Murmur: No Friction rub: No Gallop: None auscultated - Abdominal Inspection: Normal Distension: No distension Bowel sounds: Normal Tenderness: Tender - Epigastric tenderness to palpation Organomegaly: No organomegaly - Back Back: Normal - Extremities General upper extremity: Normal ROM General lower extremity: Normal ROM Foot: Other - Right fifth toe amputation, bandaged, other 4 toenails are covered in white nail [place]. - Neurological Neuro grossly intact: Yes Cognition: Normal Orientation: AAOx4 Molly Coma Scale Eye Opening: Spontaneous [place] Coma Scale Verbal: Oriented [place] Coma Scale Motor: Obeys Commands Molly Coma Scale Total: 15 Speech: Normal - Psychological Associated symptoms: Normal affect, Normal mood - Skin Skin Temperature: Warm Skin Moisture: Dry Skin Color: Normal <MARISELA RIVERA - Last Filed: 04/12/18 16:07> - Vital signs Vitals: Temp Pulse Resp Pulse Ox 98.8 F 91 20 100 04/12/18 15:21 04/12/18 15:21 04/12/18 15:21 04/12/18 15:21 Course - Laboratory Result Diagrams: 04/12/18 14:25 04/12/18 14:25 <MARISELA RIVERA - Last Filed: 04/12/18 16:07> - Laboratory Result Diagrams: 04/13/18 00:30 04/13/18 00:30 - Diagnostic Test Radiology reviewed: Image reviewed, Reports reviewed - Chest x-ray showed stable emphysematous changes with nothing acute. - EKG Interpretation by Md EKG shows normal: Mertens, Intervals, QRS Complexes, ST-T Waves Rate: Normal - 92 Rhythm: Other - Atrial sensed ventricular paced rhythm When compared to previous EKG there are: No significant change - Consults Dr. Kapoor Time consulted: 23:05 Consulted provider: will see as inpatient - Requests medicine admit the patient , as he will need to be medically managed and off of his Xarelto prior to surgery. Dr. Arriaga Time consulted: 00:05 Consulted provider: other - Recommends transferring the patient in case he may need ERCP. Dr. Baca Consulted provider: other - Is accepting for Dr. Booker at [facility]. - Transfer of Care Care transferred to following provider: Dr. Khan <TRISTAN BOB - Last Filed: 04/13/18 02:38> - Laboratory Result Diagrams: 04/13/18 00:30 04/13/18 00:30 <CARROLL KHAN - Last Filed: 04/13/18 05:53> - Re-evaluation Re-evalutation: 04/12/18 17:07 The patient does have an empty bottle of hydrocodone 5 mg/acetaminophen 325 mg was filled on 04/09/2018 with 20 tablets. He states he took his last dose this morning. Review of the [place] controlled substance reporting system indicates that he had a prescription filled on 03/16/2018 of 120 alprazolam 0.25 mg tablets, and 180 oxycodone 5 mg tablets. These were prescribed by Wendy Jorgensen DO from [facility], and filled at the [facility] drugstores in [place]. According to the patient's spouse, on the morning of 03/16/2018 the longterm did not have his medication, he was sent to [place] for a follow-up with his vascular surgeon. At that visit he was told that he needed to keep his feet elevated, but did not need physical therapy. They decided on return to the longterm that they would leave AMA and manage his health concerns at home. He reports he did receive 2 pain pills at the longterm when he returned from his [place] appointment. He was not discharged home with any pain medications. 04/12/18 23:42 The patient had a gallbladder ultrasound done due to his epigastric discomfort and very minimal increase in his liver function tests. The ultrasound showed a possible hydropic gallbladder. A HIDA scan including dosing after 1 hour with morphine, never showed uptake. Reevaluation of the patient shows that his tenderness seems more localized to the right upper quadrant now. 04/13/18 02:38 On repeat lab work, the patient's bilirubin has more than doubled, the white blood cell count has doubled and has shifted. This change in his lab work confirmed the need to be transferred to a facility that can do ERCP. (TRISTAN BOB) 04/13/18 05:52 Did have a brief run of tachycardia. It resolved on its own. His AICD did not shock him. Patient said he was asleep and did not even notice it. He is awake now and says he feels fine except for his ongoing abdominal pain. Says Dilaudid does help when it wears off the pain comes back. I did re-palpate his abdomen. It is tender over the right upper portion of the abdomen but he does not have peritoneal signs at this time. I will order more pain medicine form. Clinically he otherwise looks okay. (CARROLL KHAN) - Vital Signs Vital signs: Temp Pulse Resp BP Pulse Ox 98.9 F 96 18 113/65 100 04/13/18 05:50 04/13/18 05:50 04/13/18 05:50 04/13/18 05:50 04/13/18 05:50 - Laboratory Laboratory results interpreted by me: 04/12/18 04/12/18 04/13/18 14:25 14:25 00:30 WBC 10.7 H 19.2 H Hgb 12.4 L MCH 26.9 L RDW 18.9 H 18.9 H Plt Count 593 H 459 H Seg Neutrophils % 80.8 H Seg Neuts % (Manual) 96 H Lymphocytes % 8.2 L Lymphocytes % (Manual) 2 L Monocytes % (Manual) 2 L Absolute Neutrophils 8.7 H Abs Neuts (Manual) 18.4 H Abs Lymphs (Manual) 0.4 L Glucose Total Bilirubin 2.0 H Direct Bilirubin 1.6 H AST 121 H ALT Alkaline Phosphatase 340 H Creatine Kinase 24 L Total Protein 6.2 L Albumin 3.1 L Urine Protein Urine Bilirubin Urine Urobilinogen 04/13/18 04/13/18 00:30 04:25 WBC Hgb MCH RDW Plt Count Seg Neutrophils % Seg Neuts % (Manual) Lymphocytes % Lymphocytes % (Manual) Monocytes % (Manual) Absolute Neutrophils Abs Neuts (Manual) Abs Lymphs (Manual) Glucose 128 H Total Bilirubin 5.0 H D Direct Bilirubin 4.3 H AST 126 H ALT 79 H Alkaline Phosphatase 384 H Creatine Kinase Total Protein 5.6 L Albumin 2.6 L Urine Protein 100 H Urine Bilirubin MODERATE H Urine Urobilinogen 4.0 H - Transfer of Care Notes: 04/13/18 02:15 Patient is pending transfer to [facility]. (TRISTAN BOB) Critical Care Note - Critical Care Note Total time excluding time spent on procedures (mins): 45 <TRISTAN BOB - Last Filed: 04/13/18 02:38> Discharge <MARISELA RIVERA - Last Filed: 04/12/18 16:07> <TRISTAN BOB - Last Filed: 04/13/18 02:38> <CARROLL KHAN - Last Filed: 04/13/18 05:53> - Discharge Clinical Impression: Gallbladder hydrops, Cholecystitis, History of DVT (deep vein thrombosis), History of pulmonary embolism, Peripheral vascular disease, Biliary obstruction COPD (chronic obstructive pulmonary disease) Qualifiers: COPD type: unspecified COPD Qualified Code(s): J44.9 - Chronic obstructive pulmonary disease, unspecified Condition: Good Disposition: [facility] Scribe Attestation: 04/12/18 17:11 I personally performed the services described in the documentation, reviewed and edited the documentation which was dictated to the scribe in my presence, and it accurately records my words and actions. (TRISTAN BOB) Scribe Documentation - Scribe Written by Keith:: Keith Sy, 04/12/2018 15:55 acting as scribe for :: Rigoberto <MARISELA RIVERA - Last Filed: 04/12/18 16:07>
[2018-04-12] MEDS ORDERED: FENTANYL CITRATE INJ/PF 100 MCG/2 ML AMPUL IV ONE (15:42)
[2018-04-12 15:52] LABS: ALANINE AMINOTRANSFERASE 52 U/L (21-72); ALBUMIN 3.1 g/dL (3.5-5.0); ALKALINE PHOSPHATASE 340 U/L (38-126); ANION GAP 11 (5-19); ASPARTATE AMINO TRANSFERASE 121 U/L (17-59); BILIRUBIN,DIRECT 1.6 mg/dL (0.0-0.4); BLOOD UREA NITROGEN 17 mg/dL (7-20); CARBON DIOXIDE 26 mmol/L (22-30); CHLORIDE 104 mmol/L (98-107); CREATINE KINASE 24 U/L (55-170); GLUCOSE 106 mg/dL (75-110); POTASSIUM 4.9 mmol/L (3.6-5.0); SODIUM 140.9 mmol/L (137-145); TOTAL PROTEIN 6.2 g/dL (6.3-8.2)
--- NOTE | 2018-04-12 16:00 | RADIOLOGY REPORT (SQ) ---
EXAM DESCRIPTION: CHEST SINGLE VIEW COMPLETED DATE/TIME: 04/12/2018 3:37 pm REASON FOR STUDY: cp COMPARISON: 03/03/2018 EXAM PARAMETERS: NUMBER OF VIEWS: One view. TECHNIQUE: Single frontal radiographic view of the chest acquired. RADIATION DOSE: NA LIMITATIONS: None. FINDINGS: LUNGS AND PLEURA: Re- demonstration of emphysematous changes. No focal consolidation. Ch ronic blunting of the right costophrenic angle. No pneumothorax. MEDIASTINUM AND HILAR STRUCTURES: No masses. Contour normal. HEART AND VASCULAR STRUCTURES: Heart normal in size. Normal vasculature. BONES: No acute findings. HARDWARE: AICD. OTHER: No other significant finding. IMPRESSION: Stable radiographic appearance of the chest demonstrating emphysematous changes. No po dence of acute cardiopulmonary abnormality. TECHNICAL DOCUMENTATION: JOB ID: [id number] [employer]- All Rights Reserved Reading location - IP/workstation name: [email or web address]
[2018-04-12 16:04] LABS: CREATINE KINASE MB 1.85 ng/mL (<4.55); TROPONIN I < 0.012 ng/mL
--- NOTE | 2018-04-12 16:16 | EKG REPORT ---
SEVERITY:- ABNORMAL ECG - ATRIAL-SENSED VENTRICULAR-PACED RHYTHM : Confirmed by: Alden Salgado MD 12-Apr-2018 16:16:01
[2018-04-12] MEDS ORDERED: HYDROMORPHONE HCL INJ/PF 2 MG/ML AMPULE IV ONE ×2 (17:06→18:54)
--- NOTE | 2018-04-12 17:57 | RADIOLOGY REPORT (SQ) ---
EXAM DESCRIPTION: U/S ABDOMEN LIMITED W/O DOP COMPLETED DATE/TIME: 04/12/2018 5:48 pm REASON FOR STUDY: Pain with elevated liver enzymes. COMPARISON: None. TECHNIQUE: Dynamic and static grayscale images acquired of the abdomen and recorded on PACS. Additio nal selected color Doppler and spectral images recorded. LIMITATIONS: Nonvisualization of the pancreas and aorta due to obscuration by intervening bowel gas. FINDINGS: PANCREAS: Not visualized. LIVER: No masses. Echotexture normal. LIVER VASCULATURE: Normal directional flow of the main portal vein and hepatic veins. GALLBLADDER: Hydropic. No stones. Normal wall thickness. No pericholecystic fluid. ULTRASOUND-DETECTED VALEVRDE'S SIGN: Negative. INTRAHEPATIC DUCTS AND COMMON DUCT: No intrahepatic biliary dilatation. The common bile duct measure s mildly prominent at 8.2 mm. No filling defect is visualized. INFERIOR VENA CAVA: Normal flow. AORTA: Not visualized. RIGHT KIDNEY: Normal size. Normal echogenicity. No solid or suspicious masses. No hydronephrosis. No calcifications. PERITONEAL AND RIGHT PLEURAL SPACE: No ascites or effusions. OTHER: No other significant findings. IMPRESSION: Limited examination. The pancreas and aorta are not adequately evaluated. Mild promine nce of the common bile duct, measuring 8.2 mm. No filling defect visualized. TECHNICAL DOCUMENTATION: JOB ID: [id number] [employer]- All Rights Reserved Reading location - IP/workstation name: [email or web address]
[2018-04-12] MEDS ORDERED: MORPHINE SULFATE 10 MG/ML INJ IV ONE (21:48)
[2018-04-12] MEDS ORDERED: ERTAPENEM SODIUM INJ 1 GM VIAL IV ONE (23:47)
[2018-04-13] MEDS ORDERED: HYDROMORPHONE HCL INJ/PF 2 MG/ML AMPULE IV ONE ×5 (00:05→08:15)
--- NOTE | 2018-04-13 00:09 | RADIOLOGY REPORT (SQ) ---
EXAM DESCRIPTION: NM HEPATOBILIARY WITHOUT PHARM COMPLETED DATE/TME: 04/12/2018 18:40 CLINICAL HISTORY: 63 years, Male, Hydropic gallbladder on ultrasound, elevated LFT's COMPARISON: Ultrasound, same day, report only. RADIONUCLIDE AND DOSE: 5.46 mCi of Tc99m mebrofenin IV. 5.43 mCi of Tc99m mebrofenin IV. 0.04 mg/kg of morphine IV. LIMITATIONS: None. Findings Hepatic transit time: Normal. Excretion into small bowel: Normal. Gallbladder: Not visualized. Other findings:None. Impression [Nonvisualization of gallbladder at 20 minutes after morphine. Differential diagnosis includes acalculous cholecystitis, gallbladder dysfunction, prolonged fasting, hyperalimentation, bile stasis, and sludge.
[2018-04-13] MEDS ORDERED: NORMAL SALINE 1000 ML 250 ML IV ONE (00:35)
[2018-04-13 01:47] LABS: HEMATOCRIT 38.3 % (37.9-51.0); HEMOGLOBIN 12.4 g/dL (13.5-17.0); MEAN CORPUSCULAR HEMOGLOBIN 27.1 pg (27.0-33.4); MEAN CORPUSCULAR HGB CONC 32.2 g/dL (32.0-36.0); MEAN CORPUSCULAR VOLUME 84 fl (80-97); PLATELET COUNT 459 10^3/uL (150-450); RED BLOOD COUNT 4.57 10^6/uL (4.35-5.55); RED CELL DISTRIBUTION WIDTH 18.9 % (11.5-14.0); WHITE BLOOD COUNT 19.2 10^3/uL (4.0-10.5)
[2018-04-13 02:14] LABS: ALANINE AMINOTRANSFERASE 79 U/L (21-72); ALBUMIN 2.6 g/dL (3.5-5.0); ALKALINE PHOSPHATASE 384 U/L (38-126); ANION GAP 10 (5-19); ASPARTATE AMINO TRANSFERASE 126 U/L (17-59); BILIRUBIN,DIRECT 4.3 mg/dL (0.0-0.4); BLOOD UREA NITROGEN 20 mg/dL (7-20); CALCIUM 8.7 mg/dL (8.4-10.2); CARBON DIOXIDE 25 mmol/L (22-30); CHLORIDE 105 mmol/L (98-107); GLUCOSE 128 mg/dL (75-110); POTASSIUM 4.6 mmol/L (3.6-5.0); SODIUM 139.5 mmol/L (137-145); TOTAL PROTEIN 5.6 g/dL (6.3-8.2)
[2018-04-13 02:33] LABS: ABSOLUTE LYMPHOCYTES# (MANUAL) 0.4 10^3/uL (0.5-4.7); ABSOLUTE MONOCYTES # (MANUAL) 0.4 10^3/uL (0.1-1.4); ABSOLUTE NEUTROPHILS# (MANUAL) 18.4 10^3/uL (1.7-8.2); BASOPHILS % (MANUAL) 0 % (0-2); EOSINOPHILS % (MANUAL) 0 % (0-6); LYMPHOCYTES % (MANUAL) 2 % (13-45); MONOCYTES % (MANUAL) 2 % (3-13); SEGMENTED NEUTROPHILS % (MAN) 96 % (42-78); TOTAL CELLS COUNTED 100; TOXIC VACUOLATION PRESENT
[2018-04-13 02:36] LABS: ANISOCYTOSIS 1+; BURR CELLS 2+; OVALOCYTES 1+; PLATELET COMMENT ADEQUATE; POIKILOCYTOSIS 1+
[2018-04-13 04:51] LABS: APPEARANCE,URINE CLOUDY; BILIRUBIN,URINE MODERATE (NEGATIVE); COLOR,URINE DARK YELLOW; GLUCOSE, URINE NEGATIVE (NEGATIVE); KETONES,URINE NEGATIVE (NEGATIVE); LEUKOCYTE ESTERASE,URINE NEGATIVE (NEGATIVE); NITRITE,URINE NEGATIVE (NEGATIVE); PROTEIN,URINE 100 mg/dL (NEGATIVE); URINE SPECIFIC GRAVITY 1.029
[2018-04-13 08:03] VITALS: BP 126/84
== END 2018-04-13 08:15 | disposition short-term general hospital (02) ==
LOC: ER 15:09
DX: R07.9 Chest pain, unspecified (principal); K81.9 Cholecystitis, unspecified; K82.1 Hydrops of gallbladder; K83.1 Obstruction of bile duct; J44.9 Chronic obstructive pulmonary disease, unspecified; I73.9 Peripheral vascular disease, unspecified; R10.9 Unspecified abdominal pain; F17.200 Nicotine dependence, unspecified, uncomplicated; I10 Essential (primary) hypertension; I48.91 Unspecified atrial fibrillation; I25.10 Atherosclerotic heart disease of native coronary artery without angina pectoris; Z99.81 Dependence on supplemental oxygen; Z95.0 Presence of cardiac pacemaker; Z86.718 Personal history of other venous thrombosis and embolism
CPT/HCPCS: 93005; 96376; 99291; 96361; 96375; 96365; 96366; 36415; 87040; 82553; 82550; 85025; 80053; 81001; 84484; 71045; 76705; 78226; 93010; A9537; J3010; J1335; J2270; J1170 ×2; J7030; Q9969